=== PATIENT | male | born 1960 | race Caucasian/White ===

== ENCOUNTER 2017-06-07 19:50 | Inpatient (IN) | payer OTHER, MEDICAID ==
[~2017-06-07] VITALS: Ht 188 cm; Wt 95.3 kg
[2017-06-07] MEDS ORDERED: COLACE100 MG ORAL (19:59)
[2017-06-07] MEDS ORDERED: Haloperidol 5mg/ml Inj IM ONE (20:00)
[2017-06-07] MEDS ORDERED: DEPAKOTE ER500 MG ORAL (20:00)
[2017-06-07] MEDS ORDERED: DiphenhydrAMINE 50mg/ml Inj IM ONE (20:00)
[2017-06-07] MEDS ORDERED: FLEET ENEMA133 ML RECTAL (20:01)
[2017-06-07] MEDS ORDERED: BISACODYL5 MG ORAL (20:01)
[2017-06-07] MEDS ORDERED: HALOPERIDOL5 MG/1 ML IJ (20:02)
[2017-06-07] MEDS ORDERED: LEVOTHYROXINE150 MCG ORAL (20:02)
[2017-06-07] MEDS ORDERED: METOPROLOL TART50 M1 ORAL (20:03)
[2017-06-07] MEDS ORDERED: MILK OF MA400 MG/51 ORAL (20:03)
--- NOTE | 2017-06-07 20:03 | Emergency Room Report ---
History of Present Illness General Chief Complaint: Lower Extremity Injury Source: Patient, Medical Record, EMS Present Illness HPI The patient is sent in for altered mental status and question of lesions on his feet. He claims that he's been walking a lot. He denies suicidal or homicidal ideation. He does tend to confabulate and his history is questionable. He denies pain except in his feet. He is unsure when his last tetanus shot was. No fevers, cough, NVD, dysuria, headache. Alleges he is taking medication. There is reports of prior seizure disorder on valproic acid. No reported recent seizures. Allergies: Coded Allergies: No Known Allergies (Unverified , 06/07/17) Patient History Limited by: medical condition Past Medical History: see triage record Social History: Denies: smoking, alcohol use, drug use Social History Narrative [facility] Reviewed Nursing Documentation: PMH: Agreed, PSxH: Agreed Nursing Documentation-PM Past Medical History: No History, Except For Hx Hypertension: Yes History Of Psychiatric Problem: Yes - psychosis,schizophrenia Hx Neurological Problems: Yes - anxiety,depression,hallucinations Hx Seizures: Yes Review of Systems All Other Systems: limited Physical Exam Vital Signs Date Time Temp Pulse Resp B/P (MAP) Pulse Ox O2 Delivery O2 Flow Rate FiO2 06/07/17 19:23 98.6 78 17 118/80 97 Room Air Sp02 EP Interpretation: reviewed, normal General Appearance: well appearing, no apparent distress, alert, non-toxic Head: normocephalic, atraumatic Eyes: left eye abnormal pupil, bilateral eye normal inspection, bilateral eye PERRL, bilateral eye EOMI ENT: moist mucus membranes - no lingual macerations Neck: supple, no bony tend Respiratory: lungs clear, normal breath sounds Cardiovascular #1: regular rate, rhythm Cardiovascular #2: 2+ radial (R) Gastrointestinal: normal inspection, normal bowel sounds, non tender, no mass, non-distended Musculoskeletal: back normal, gait/station normal, normal range of motion Neurologic: alert, motor strength/tone normal, sensory intact, cerebellar normal, normal gait, oriented - X1 Psychiatric: no suicidal/homicidal ideation, other - flat affect, confabulates , perseveation Skin: warm/dry, other - blisters and ulcerations toes without erythema Medical Decision Making Diagnostic Impression: Primary Impression: Skin ulcers of both feet Additional Impressions: Psychosis Qualified Codes: F29 - Unspecified psychosis not due to a substance or known physiological condition Subtherapeutic Depakote level ER Course Patient presents with ulcers in both feet. He's been walking a lot. He's delusional at this time. Evaluation includes a foot x-rays, chest x-ray, EKG and labs. The patient be treated with IV hydration. No evidence of recent seizure activity. The patient is not responding to direction for treatment. He doesn't understand the consequences of his actions at this time. He will be sedated and non-violent restraints will be used. Patient is uncertain of tetanus status tetanus and this is given. Laboratory is unremarkable. X-rays do not show evidence of osteomyelitis or gas gangrene. Antibiotics not indicated this time aside from topical. However because the patient is psychotic the patient needs to be evaluated in the hospital. Patient admitted to medical floor with Dr. Lyons. Charles recio. PO dose ordered. Laboratory Tests Test 06/07/17 20:25 White Blood Count 9.6 K/UL (4.8-10.8) Red Blood Count 4.01 M/UL (4.70-6.10) L Hemoglobin 13.1 G/DL (14.2-18.0) L Hematocrit 41.1 % (42.0-52.0) L Mean Corpuscular Volume 103 FL (80-99) H Mean Corpuscular Hemoglobin 32.8 PG (27.0-31.0) H Mean Corpuscular Hemoglobin Concent 32.0 G/DL (32.0-36.0) Red Cell Distribution Width 10.5 % (11.6-14.8) L Platelet Count 312 K/UL (150-450) Mean Platelet Volume 5.6 FL (6.5-10.1) L Neutrophils (%) (Auto) 66.2 % (45.0-75.0) Lymphocytes (%) (Auto) 21.8 % (20.0-45.0) Monocytes (%) (Auto) 9.8 % (1.0-10.0) Eosinophils (%) (Auto) 1.5 % (0.0-3.0) Basophils (%) (Auto) 0.7 % (0.0-2.0) Erythrocyte Sedimentation Rate 16 MM/HR (0-20) Prothrombin Time 9.9 SEC (9.30-11.50) Prothrombin Time INR 0.9 (0.9-1.1) PTT 26 SEC (23-33) Sodium Level 134 MMOL/L (136-145) L Potassium Level 3.9 MMOL/L (3.5-5.1) Chloride Level 99 MMOL/L (98-107) Carbon Dioxide Level 30 MMOL/L (21-32) Anion Gap 5 mmol/L (5-15) Blood Urea Nitrogen 16 mg/dL (7-18) Creatinine 0.9 MG/DL (0.55-1.30) Estimate Glomerular Filtration Rate > 60 mL/min (>60) Glucose Level 110 MG/DL (74-106) H Lactic Acid Level 0.90 mmol/L (0.66-2.22) Calcium Level 7.5 MG/DL (8.5-10.1) L Total Bilirubin 0.3 MG/DL (0.2-1.0) Aspartate Amino Transferase (AST) 25 U/L (15-37) Alanine Aminotransferase (ALT) 21 U/L (12-78) Alkaline Phosphatase 72 U/L (46-116) Total Creatine Kinase 328 U/L (26-308) H Troponin I 0.008 ng/mL (0.000-0.056) Pro-B-Type Natriuretic Peptide 91 pg/mL (0-125) Total Protein 6.8 G/DL (6.4-8.2) Albumin 3.2 G/DL (3.4-5.0) L Globulin 3.6 g/dL Albumin/Globulin Ratio 0.9 (1.0-2.7) L Salicylates Level 3.0 ug/mL (2.8-20) Acetaminophen Level < 2 MCG/ML (10-30) L Serum Alcohol < 3 mg/dL EKG Diagnostic Results Rate: normal Rhythm: NSR ST Segments: no acute changes Rhythm Strip Diag. Results EP Interpretation: yes Rhythm: NSR, no PVC's, no ectopy Chest X-Ray Diagnostic Results Chest X-Ray Diagnostic Results : Chest X-Ray Ordered: Yes # of Views/Limited/Complete: 1 View Indication: Other EP Interpretation: Yes Interpretation: no consolidation, no effusion, no pneumothorax, no acute cardiopulmonary disease Impression: No acute disease Electronically Signed by: Gonzalez Cason MD Other X-Ray Diagnostic Results Other X-Ray Diagnostic Results #1: X-Ray ordered: R foot # of Views/Limited Vs Complete: 3 View Indication: Other EP Interpretation: Yes Interpretation: no dislocation, no soft tissue swelling, no fractures, other - djd Impression: No acute disease Electronically Signed by: Gonzalez Cason MD Other X-Ray Diagnostic Results #2: X-Ray ordered: L foot # of Views/Limited Vs Complete: 3 View Indication: Other EP Interpretation: Yes Interpretation: no dislocation, no soft tissue swelling, no fractures, other - djd Impression: No acute disease Electronically Signed by: Gonzalez Cason MD Last Vital Signs Date Time Temp Pulse Resp B/P (MAP) Pulse Ox O2 Delivery O2 Flow Rate FiO2 06/08/17 02:01 98.0 98 16 110/75 100 Room Air Status: improved Disposition: ADMITTED INPATIENT Condition: Serious Gonzalez Cason M.D. Jun 07, 2017 20:03
[2017-06-07] MEDS ORDERED: RISPERDAL1 MG PO (20:04)
[2017-06-07] MEDS ORDERED: TYLENOL325 MG ORAL (20:04)
[2017-06-07] MEDS ORDERED: Tetanus/Diptheria/Pertussis Vaccine 0.5ml Syr IM ONE (20:15)
[2017-06-07 21:07] LABS: BASOPHILS % (AUTO) 0.7 % (0.0-2.0); EOSINOPHILS % (AUTO) 1.5 % (0.0-3.0); HEMATOCRIT 41.1 % (42.0-52.0); HEMOGLOBIN 13.1 G/DL (14.2-18.0); LYMPHOCYTES % (AUTO) 21.8 % (20.0-45.0); MEAN CORPUSCULAR VOLUME 103 FL (80-99); MONOCYTES % (AUTO) 9.8 % (1.0-10.0); NEUTROPHILS % (AUTO) 66.2 % (45.0-75.0); PLATELET COUNT 312 K/UL (150-450); RED BLOOD COUNT 4.01 M/UL (4.70-6.10); RED CELL DISTRIBUTION WIDTH 10.5 % (11.6-14.8); WHITE BLOOD COUNT 9.6 K/UL (4.8-10.8)
[2017-06-07 21:19] LABS: ANION GAP 5 mmol/L (5-15); BLOOD UREA NITROGEN 16 mg/dL (7-18); CALCIUM 7.5 MG/DL (8.5-10.1); CARBON DIOXIDE 30 MMOL/L (21-32); CHLORIDE 99 MMOL/L (98-107); CREATININE 0.9 MG/DL (0.55-1.30); POTASSIUM 3.9 MMOL/L (3.5-5.1); SODIUM 134 MMOL/L (136-145)
[2017-06-07 21:21] LABS: INR 0.9 (0.9-1.1)
[2017-06-07 21:36] LABS: ALANINE AMINOTRANSFERASE 21 U/L (12-78); ALBUMIN 3.2 G/DL (3.4-5.0); ALBUMIN/GLOBULIN RATIO 0.9 (1.0-2.7); ALKALINE PHOSPHATASE 72 U/L (46-116); ASPARTATE AMINO TRANSFERASE 25 U/L (15-37); BILIRUBIN,TOTAL 0.3 MG/DL (0.2-1.0); CREATINE KINASE 328 U/L (26-308)
[2017-06-07 22:01] VITALS: BP 120/68
[2017-06-08 00:01] VITALS: BP 97/67
[2017-06-08 02:01] VITALS: BP 110/75
[2017-06-08 03:26] LABS: APPEARANCE,URINE CLEAR; BILIRUBIN, URINE NEGATIVE (NEGATIVE); COLOR,URINE PALE YELLOW; GLUCOSE, URINE (UA) NEGATIVE (NEGATIVE); KETONES,URINE 2+ (NEGATIVE); LEUKOCYTE ESTERASE ,URINE NEGATIVE (NEGATIVE); NITRITE,URINE NEGATIVE (NEGATIVE); PH,URINE 8 (4.5-8.0); PROTEIN,URINE NEGATIVE (NEGATIVE); UROBILINOGEN,URINE NORMAL MG/DL (0.0-1.0)
[2017-06-08 05:32] VITALS: BP 112/66
[2017-06-08] MEDS ORDERED: DiphenhydrAMINE 50mg/ml Inj IM ONE (06:00)
[2017-06-08] MEDS ORDERED: Haloperidol 5mg/ml Inj IM ONE (06:00)
[2017-06-08] MEDS ORDERED: LORazepam Inj 2mg/ml 1ml IM ONE (06:00)
[2017-06-08] MEDS ORDERED: Depakote 500mg tab ORAL STA (06:27)
[2017-06-08] MEDS ORDERED: Miralax 17gm pkt ORAL PRN (07:45)
[2017-06-08] MEDS ORDERED: Morphine Sulfate 2mg/ml Inj IVP PRN (07:45)
[2017-06-08] MEDS ORDERED: Albuterol/Ipratropium 3ml neb HHN PRN (07:45)
[2017-06-08] MEDS ORDERED: Nitroglycerin Subl 0.4mg tab SL PRN (08:00)
--- NOTE | 2017-06-08 08:58 | Consultation ---
History of Present Illness General Date patient seen: Jun 08, 2017 Time patient seen: 08:30 Chief Complaint: Lower Extremity Injury Referring physician: dr Lyons Reason for Consultation: inpatient management Present Illness HPI 57 y/old male with PMH of psychiatric disorder, seizure disorder, HTN, anemia, depression, hypothyroidism was sent for altered mental status and bilateral foot lesions for evaluation Patient denied suicidal or homicidal ideations. His history was questionable. He denied pain except in his feet. He was unsure when his last tetanus shot was. No fevers, chills No n/v/diarrhea, dysuria denied CP, SOB, cough, no recent seizure activity( was on Depakote ) Upon evaluation stable VSS Laboratory work was unremarkable urine tox screen negative subtherapeutic Depakote level troponin negative ECG with NSR no acute ischemic changes CXR negative X ray B foot - no evidence of osteo or gas gangrene patient was medicated for agitation/anxiety and admitted for further management Allergies: Coded Allergies: No Known Allergies (Unverified , 06/07/17) Medication History Scheduled Bisacodyl* (Dulcolax*), 10 MG ORAL ONCE, (Reported) Divalproex Sodium* (Depakote Er*), 500 MG ORAL EVERY 12 HOURS, (Reported) Docusate Sodium* (Colace*), 100 MG ORAL DAILY, (Reported) Levothyroxine Sodium* (Levothyroxine Sodium*), 150 MCG ORAL DAILY, (Reported) Magnesium Hydroxide* (Milk Of Magnesia*), 30 ML ORAL DAILY, (Reported) Metoprolol Tartrate* (Metoprolol Tartrate*), 50 MG ORAL EVERY 12 HOURS, ( Reported) Na Phos,M-B/Na Phos,Di-Ba* (Fleet Enema*), 133 ML RECTAL DAILY, (Reported) Risperidone* (Risperdal*), 1 MG PO DAILY, (Reported) Scheduled PRN Acetaminophen (Tylenol), 500 MG ORAL Q6H PRN for Prn Pain/Headache/Temp > 101, ( Reported) Miscellaneous Medications Haloperidol Lactate (Haloperidol), 1 MG IJ, (Reported) Patient History History Provided By: Medical Record Healthcare decision maker Resuscitation status Advanced Directive on File Review of Systems ROS Narrative unable to obtain due to ALOC Physical Exam General Appearance: WD/WN, no apparent distress Lines, tubes and drains: peripheral HEENT: normocephalic, atraumatic, anicteric, mucous membranes moist Neck: non-tender, supple Respiratory/Chest: lungs clear, no respiratory distress Cardiovascular/Chest: normal rate, no JVD Abdomen: normal bowel sounds, soft Extremities: normal range of motion, non-tender Skin Exam: other - blisters and ulcerations bilateral great toes without erythema Neurologic: alert, responsive, depressed affect Last 24 Hour Vital Signs Date Time Temp Pulse Resp B/P (MAP) Pulse Ox O2 Delivery O2 Flow Rate FiO2 06/08/17 05:32 98.2 82 18 112/66 99 Room Air 06/08/17 02:01 98.0 98 16 110/75 100 Room Air 06/08/17 00:01 98.6 62 20 97/67 100 Room Air 06/07/17 22:01 98.6 79 18 120/68 100 Room Air 06/07/17 19:23 98.6 78 17 118/80 97 Room Air Intake and Output 06/07/17 06/08/17 19:00 07:00 Intake Total 0 ml Output Total 2450 ml Balance -2450 ml Intake Oral 0 ml Output Urine Total 2450 ml Laboratory Tests Test 06/07/17 20:25 06/08/17 00:00 06/08/17 03:12 White Blood Count 9.6 K/UL (4.8-10.8) Red Blood Count 4.01 M/UL (4.70-6.10) L Hemoglobin 13.1 G/DL (14.2-18.0) L Hematocrit 41.1 % (42.0-52.0) L Mean Corpuscular Volume 103 FL (80-99) H Mean Corpuscular Hemoglobin 32.8 PG (27.0-31.0) H Mean Corpuscular Hemoglobin Concent 32.0 G/DL (32.0-36.0) Red Cell Distribution Width 10.5 % (11.6-14.8) L Platelet Count 312 K/UL (150-450) Mean Platelet Volume 5.6 FL (6.5-10.1) L Neutrophils (%) (Auto) 66.2 % (45.0-75.0) Lymphocytes (%) (Auto) 21.8 % (20.0-45.0) Monocytes (%) (Auto) 9.8 % (1.0-10.0) Eosinophils (%) (Auto) 1.5 % (0.0-3.0) Basophils (%) (Auto) 0.7 % (0.0-2.0) Erythrocyte Sedimentation Rate 16 MM/HR (0-20) Prothrombin Time 9.9 SEC (9.30-11.50) Prothromb Time International Ratio 0.9 (0.9-1.1) Activated Partial Thromboplast Time 26 SEC (23-33) Sodium Level 134 MMOL/L (136-145) L Potassium Level 3.9 MMOL/L (3.5-5.1) Chloride Level 99 MMOL/L (98-107) Carbon Dioxide Level 30 MMOL/L (21-32) Anion Gap 5 mmol/L (5-15) Blood Urea Nitrogen 16 mg/dL (7-18) Creatinine 0.9 MG/DL (0.55-1.30) Estimat Glomerular Filtration Rate > 60 mL/min (>60) Glucose Level 110 MG/DL (74-106) H Lactic Acid Level 0.90 mmol/L (0.66-2.22) Calcium Level 7.5 MG/DL (8.5-10.1) L Total Bilirubin 0.3 MG/DL (0.2-1.0) Aspartate Amino Transf (AST/SGOT) 25 U/L (15-37) Alanine Aminotransferase (ALT/SGPT) 21 U/L (12-78) Alkaline Phosphatase 72 U/L (46-116) Total Creatine Kinase 328 U/L (26-308) H Troponin I 0.008 ng/mL (0.000-0.056) Pro-B-Type Natriuretic Peptide 91 pg/mL (0-125) Total Protein 6.8 G/DL (6.4-8.2) Albumin 3.2 G/DL (3.4-5.0) L Globulin 3.6 g/dL Albumin/Globulin Ratio 0.9 (1.0-2.7) L Salicylates Level 3.0 ug/mL (2.8-20) Acetaminophen Level < 2 MCG/ML (10-30) L Serum Alcohol < 3 mg/dL Valproic Acid (Depakene) Level 36 MCG/ML (50-100) L Urine Color Pale yellow Urine Appearance Clear Urine pH 8 (4.5-8.0) Urine Specific [place] 1.015 (1.005-1.035) Urine Protein Negative (NEGATIVE) Urine Glucose (UA) Negative (NEGATIVE) Urine Ketones 2+ (NEGATIVE) H Urine Occult Blood 4+ (NEGATIVE) H Urine Nitrite Negative (NEGATIVE) Urine Bilirubin Negative (NEGATIVE) Urine Urobilinogen Normal MG/DL (0.0-1.0) Urine Leukocyte Esterase Negative (NEGATIVE) Urine RBC 15-20 /HPF (0 - 0) H Urine WBC 0 /HPF (0 - 0) Urine Squamous Epithelial Cells Occasional /LPF Urine Bacteria None /HPF (NONE) Urine Opiates Screen Negative (NEGATIVE) Urine Barbiturates Screen Negative (NEGATIVE) Phencyclidine (PCP) Screen Negative (NEGATIVE) Urine Amphetamines Screen Negative (NEGATIVE) Urine Benzodiazepines Screen Negative (NEGATIVE) Urine Cocaine Screen Negative (NEGATIVE) Urine Marijuana (THC) Screen Negative (NEGATIVE) Height (Feet): 6 Height (Inches): 1.00 Weight (Pounds): 210 Medications Current Medications Medications (Trade) Dose Ordered Sig/Bert Route PRN Reason Start Time Stop Time Status Last Admin Dose Admin Acetaminophen (Tylenol) 650 mg Q4H PRN ORAL T>100.5 F 06/08/17 08:00 07/08/17 07:44 Albuterol/ Ipratropium (Albuterol/ Ipratropium) 3 ml Q4H PRN HHN Shortness of Breath 06/08/17 07:45 06/13/17 07:44 Cefepime HCl 2 gm/ Dextrose 110 ml @ 220 mls/hr EVERY 12 HOURS IV 06/08/17 09:00 06/15/17 08:59 Dextrose (Dextrose 50%) STAT PRN IV Hypoglycemia 06/08/17 07:45 07/08/17 07:44 Divalproex Sodium (Depakote ER) 500 mg EVERY 12 HOURS ORAL 06/08/17 09:00 07/08/17 08:59 Heparin Sodium (Porcine) (Heparin 5000 units/ml) 5,000 units EVERY 12 HOURS SUBQ 06/08/17 09:00 07/08/17 08:59 Levothyroxine Sodium (Synthroid) 150 mcg ACBREAKFAST ORAL 06/08/17 09:00 07/08/17 08:59 Morphine Sulfate (Morphine Sulfate) 2 mg Q4H PRN IVP PAIN 4-10 06/08/17 07:45 06/15/17 07:44 Nitroglycerin (Ntg) 0.4 mg Q5MIN X 3 DOSES PRN SL Prn Chest Pain 06/08/17 08:00 07/08/17 07:59 Ondansetron HCl (Zofran) 4 mg Q6H PRN IVP Nausea & Vomiting 06/08/17 07:45 07/08/17 07:44 Polyethylene Glycol (Miralax) 17 gm DAILYPRN PRN ORAL Constipation 06/08/17 07:45 07/08/17 07:44 Risperidone (RisperDAL) 1 mg QHS ORAL 06/08/17 21:00 07/08/17 20:59 Temazepam (Restoril) 15 mg HSPRN PRN ORAL Insomnia 06/08/17 21:00 06/15/17 20:59 Vancomycin HCl (Vanco rx to dose) 1 ea DAILY PRN MISC . 06/08/17 08:00 07/08/17 07:59 Vancomycin HCl 1 gm/Dextrose 275 ml @ 183.3 mls/ hr Q8HR@0130,0930,1730 IVPB 06/08/17 17:30 06/13/17 17:29 Vancomycin HCl 2 gm/Dextrose 550 ml @ 275 mls/hr ONCE ONCE IVPB 06/08/17 09:30 06/08/17 11:29 Assessment/Plan Assessment/Plan ASSESSMENT acute toxic metabolic encephalopathy bilateral foot lesions, r/o infection seizure disorder psychosis depression with anxiety hypothyroidism PLAN OF CARE MS floor seizure precautions resume Depakote neuro eval dose per neuro recommendations psych eval ( dr Palacios called as per PMD) -further management of psych issues as per psychiatrist for now continue current psych regimen X ray bilat foot no osteo, no gas gangrene started on empiric abx until evaluated by ID tetanus shot given in ED air grinder eval wound care eval re wound care and f/up with recommendations PT/OT O2 HHH prn DVT prophayxlis Venous Duplex BLE case discussed and evaluated by supervising physician Zack ([facility])Snehal NP Jun 08, 2017 08:58
[2017-06-08] MEDS ORDERED: Cefepime HCl 2 GM in D5W 110 ML IV SCH (09:00)
[2017-06-08 09:13] VITALS: BP 100/71
[2017-06-08] MEDS ORDERED: Vancomycin 2gm/D5W 550ml IVPB ONE ×4 (09:30→12:00)
[2017-06-08] MEDS: Depakote ER 500mg tab ORAL SCH ×2 (11:21→21:11)
[2017-06-08] MEDS: Heparin 5000 units/ml inj SUBQ SCH ×2 (11:23→21:12)
--- NOTE | 2017-06-08 11:45 | Neurology Progress Note ---
Objective Physical Exam Last Vital Signs Date Time Temp Pulse Resp B/P (MAP) Pulse Ox O2 Delivery O2 Flow Rate FiO2 06/08/17 09:13 97.0 64 20 100/71 95 Room Air Laboratory Tests Test 06/07/17 20:25 06/08/17 00:00 06/08/17 03:12 White Blood Count 9.6 K/UL (4.8-10.8) Red Blood Count 4.01 M/UL (4.70-6.10) L Hemoglobin 13.1 G/DL (14.2-18.0) L Hematocrit 41.1 % (42.0-52.0) L Mean Corpuscular Volume 103 FL (80-99) H Mean Corpuscular Hemoglobin 32.8 PG (27.0-31.0) H Mean Corpuscular Hemoglobin Concent 32.0 G/DL (32.0-36.0) Red Cell Distribution Width 10.5 % (11.6-14.8) L Platelet Count 312 K/UL (150-450) Mean Platelet Volume 5.6 FL (6.5-10.1) L Neutrophils (%) (Auto) 66.2 % (45.0-75.0) Lymphocytes (%) (Auto) 21.8 % (20.0-45.0) Monocytes (%) (Auto) 9.8 % (1.0-10.0) Eosinophils (%) (Auto) 1.5 % (0.0-3.0) Basophils (%) (Auto) 0.7 % (0.0-2.0) Erythrocyte Sedimentation Rate 16 MM/HR (0-20) Prothrombin Time 9.9 SEC (9.30-11.50) Prothromb Time International Ratio 0.9 (0.9-1.1) Activated Partial Thromboplast Time 26 SEC (23-33) Sodium Level 134 MMOL/L (136-145) L Potassium Level 3.9 MMOL/L (3.5-5.1) Chloride Level 99 MMOL/L (98-107) Carbon Dioxide Level 30 MMOL/L (21-32) Anion Gap 5 mmol/L (5-15) Blood Urea Nitrogen 16 mg/dL (7-18) Creatinine 0.9 MG/DL (0.55-1.30) Estimat Glomerular Filtration Rate > 60 mL/min (>60) Glucose Level 110 MG/DL (74-106) H Lactic Acid Level 0.90 mmol/L (0.66-2.22) Calcium Level 7.5 MG/DL (8.5-10.1) L Total Bilirubin 0.3 MG/DL (0.2-1.0) Aspartate Amino Transf (AST/SGOT) 25 U/L (15-37) Alanine Aminotransferase (ALT/SGPT) 21 U/L (12-78) Alkaline Phosphatase 72 U/L (46-116) Total Creatine Kinase 328 U/L (26-308) H Troponin I 0.008 ng/mL (0.000-0.056) Pro-B-Type Natriuretic Peptide 91 pg/mL (0-125) Total Protein 6.8 G/DL (6.4-8.2) Albumin 3.2 G/DL (3.4-5.0) L Globulin 3.6 g/dL Albumin/Globulin Ratio 0.9 (1.0-2.7) L Salicylates Level 3.0 ug/mL (2.8-20) Acetaminophen Level < 2 MCG/ML (10-30) L Serum Alcohol < 3 mg/dL Valproic Acid (Depakene) Level 36 MCG/ML (50-100) L Urine Color Pale yellow Urine Appearance Clear Urine pH 8 (4.5-8.0) Urine Specific [place] 1.015 (1.005-1.035) Urine Protein Negative (NEGATIVE) Urine Glucose (UA) Negative (NEGATIVE) Urine Ketones 2+ (NEGATIVE) H Urine Occult Blood 4+ (NEGATIVE) H Urine Nitrite Negative (NEGATIVE) Urine Bilirubin Negative (NEGATIVE) Urine Urobilinogen Normal MG/DL (0.0-1.0) Urine Leukocyte Esterase Negative (NEGATIVE) Urine RBC 15-20 /HPF (0 - 0) H Urine WBC 0 /HPF (0 - 0) Urine Squamous Epithelial Cells Occasional /LPF Urine Bacteria None /HPF (NONE) Urine Opiates Screen Negative (NEGATIVE) Urine Barbiturates Screen Negative (NEGATIVE) Phencyclidine (PCP) Screen Negative (NEGATIVE) Urine Amphetamines Screen Negative (NEGATIVE) Urine Benzodiazepines Screen Negative (NEGATIVE) Urine Cocaine Screen Negative (NEGATIVE) Urine Marijuana (THC) Screen Negative (NEGATIVE) Impression/Recommendations Recommendations # [id number] NADYA CAMPBELL Jun 08, 2017 11:45
[2017-06-08 11:51] VITALS: BP 102/66
--- NOTE | 2017-06-08 15:15 | History and Physical Report ---
DATE OF ADMISSION: 06/07/2017 TIME SEEN: 8 a.m. CONSULTANTS: 1. Shital Plummer M.D. 2. Dr. Saldana. 3. Melecio Palacios M.D. 4. Tee Banuelos D.P.M. CHIEF COMPLAINT: Foot ulcer and psychosis. BRIEF HISTORY: The patient is a 57-year-old male from [facility], presented with the above-mentioned diagnosis seen in the ER, still in the ER currently awaiting admission. Currently calm, sleeping in bed, refusing to answer questions. PAST MEDICAL HISTORY: Includes psych history, hypertension, hypothyroid, and foot wound. PAST SURGICAL HISTORY: Unknown. MEDICATIONS: Include Risperdal, Restoril, vancomycin, Depakote, Synthroid, heparin, cefepime, and Zofran. ALLERGIES: Denies. SOCIAL HISTORY: Unable to obtain. REVIEW OF SYSTEMS: Unavailable. PHYSICAL EXAMINATION: GENERAL: Lethargic in bed, refusing to answer questions. VITAL SIGNS: Show temperature is 98, pulse 82, respirations 18, and blood pressure 112/66. CARDIOVASCULAR: No murmurs. LUNGS: Distant and clear. ABDOMEN: Bowel sounds positive. Nontender. Nondistended. EXTREMITIES: No cyanosis or edema. Foot dressing clean and dry. NEURO: The patient moves all extremities. Does not want to follow directions. LABORATORY DATA: Labs at this time show hemoglobin 13.1, otherwise CBC is normal. BMP shows sodium 134, glucose 110, CK 328, albumin 3.2, otherwise normal. INR 0.9. PTT 26. Urine tox is negative. Urinalysis, 2+ ketones, 4+ occult blood, otherwise normal. ASSESSMENT: 1. Foot ulcer. 2. Psych history. 3. Hypertension. 4. Hypothyroid. 5. Anemia. PLAN: 1. Continue premeds. 2. Wound care. 3. Antibiotics per Infectious Disease. 4. Blood pressure control. 5. OT, PT, and dietary evaluation. 6. CBC and BMP in the morning. 7. We will continue to follow this patient medically. Osmin Lyons D.O. DR: VALENTINA JOB#: [id number] CC:
--- NOTE | 2017-06-08 16:15 | Consultation ---
DATE OF CONSULTATION: 06/08/2017 NEUROLOGICAL CONSULTATION CONSULTING PHYSICIAN: Ren Cortez M.D. REQUESTING PHYSICIAN: Osmin Lyons D.O. HISTORY OF PRESENT ILLNESS: The patient is a 57-year-old male, resident of a nursing facility, was brought to this hospital for significant changes in his mental status as well as to evaluate possible multiple lesions on his feet. On arrival to the emergency room, he was confabulating. History was not reliable. There was no fever and no cough. Denied headache. The patient reportedly had "prior seizure disorder on valproic acid," now reported recent seizures. His blood pressure 118/80 and he is afebrile. There were some skin ulcers on his both feet. His Depakote level was subtherapeutic. X-ray of the feet, there is no evidence of osteomyelitis or gangrene. Extra p.o. dose of Depakote was ordered. His EKG, normal sinus rhythm. No premature ventricular contractions and no ectopies noted. CBC study with elevated MCV and MCH. Coagulation panel was normal. His chemistry panel is unremarkable except CPK of 328, albumin 3.2, and sodium 134. Valproic acid level 46. PAST MEDICAL HISTORY: The patient has a history of chronic psychiatric disorder, hypertension, and hypothyroidism. The patient denies having seizures. MEDICATIONS: He is maintained on Depakote 500 mg b.i.d., levothyroxine, magnesium supplements, metoprolol, Risperdal 1 mg daily, and Haldol 1 mg. ALLERGIES: None reported. SOCIAL HISTORY: Resident of nursing facility. FAMILY HISTORY: Unavailable. REVIEW OF SYMPTOMS: The patient gives unreliable information indicating that he has no seizures and he is feeling well. According to nursing staff, upon arrival to the hospital, the patient had a persistent sleep, but the last few hours he woke up. PHYSICAL EXAMINATION: GENERAL: A well-developed, well-nourished man, not in acute distress, lying in bed comfortably. There is a sitter in the room and nursing staff. VITAL SIGNS: His blood pressure 118/80 and respirations 14. HEENT: Head, normocephalic. There are multiple recent and old scratches on his scalp and his both arms. There is some excoriation on both feet. MUSCULOSKELETAL EXAMINATION: Peripheral pulses 1+ and symmetric. MENTAL STATUS: The patient is alert and oriented to his name and age. He gives a very contradictory history. He is acutely psychotic, disorganized, and inappropriate affect. CRANIAL NERVE II: Pupils both responding to light and accommodation. Extraocular movement intact. No nystagmus. CRANIAL NERVE V: Normal corneal responses. CRANIAL NERVE VII: No facial asymmetry. CRANIAL NERVE VIII: Normal hearing. CRANIAL NERVES IX THROUGH XII: Within normal limits. MOTOR EXAMINATION: Normal muscle tone. Strength 5/5 in all extremities. No involuntary movement. Deep tendon reflexes 1+ and symmetric with downgoing toes on both sides. SENSORY EXAMINATION: Normal to pinprick and light touch. GAIT: Not tested. The patient was reluctant to sit or stand. IMPRESSION: 1. Acute psychosis. 2. Chronic psychiatric disorder. 3. Treatment with Depakote presumably for seizure disorder. 4. Incomplete data. RECOMMENDATIONS: Recheck Depakote level, liver function, and ammonia level. Adjust Depakote to keep in midtherapeutic range. Observe for any paroxysmal events while hospitalized. Recheck orthostatic blood pressure. Thank you for allowing me to see this interesting patient in neurological consultation. Ren Cortez M.D. DR: FIDEL JOB#: [id number] CC:
[2017-06-08] MEDS ORDERED: Tubing IV Secondary IV ONE (16:59)
[2017-06-08] MEDS ORDERED: NS 500ML ONE (16:59)
[2017-06-08] MEDS ORDERED: LORazepam Inj 2mg/ml 1ml IV ONE (17:00)
[2017-06-08] MEDS ORDERED: Vancomycin 1 GM in D5W 275 ML IVPB SCH ×4 (17:30)
--- NOTE | 2017-06-08 20:30 | Consultation ---
DATE OF CONSULTATION: 06/08/2017 INFECTIOUS DISEASES CONSULTATION PRIMARY ATTENDING PHYSICIAN: Osmin Lyons D.O. REASON FOR CONSULTATION: Cellulitis, left foot pain. HISTORY OF PRESENT ILLNESS: The patient is a 57-year-old white male admitted yesterday from halfway facility with skin ulcers both feet. The patient is a poor historian. PAST MEDICAL HISTORY: Significant for schizophrenia, hypothyroidism, history of seizure disorder, violent behavior, and hypertension. ALLERGIES: No known drug allergies. MEDICATIONS: Risperdal, temazepam, vancomycin, Depakote, levothyroxine, cefepime, heparin, Tylenol, Zofran, , and morphine. SOCIAL HISTORY: halfway resident, single. REVIEW OF SYSTEMS: Limited. The patient has no pain. No fever. No chills. No coughing. PHYSICAL EXAMINATION: GENERAL APPEARANCE: No acute distress, well developed. VITAL SIGNS: Temperature 97.3 degrees, pulse 75, and blood pressure 102/66. HEENT: [place] conjunctivae. HEART: S1 and S2 regular. LUNGS: Clear. ABDOMEN: Soft and nontender. EXTREMITIES: No edema. He has superficial skin lesion on his both feet. There is an area of skin swelling likely an drained skin abscess in the left big toe. The patient has no edema. Good peripheral pulses. LABORATORY AND DIAGNOSTIC DATA: WBC 9.6, hemoglobin 13.1, hematocrit 41.1, and platelets 312. Sodium 134, potassium 3.9, chloride 99, bicarbonate 30, BUN 16, creatinine 0.9, and glucose 110. Chest x-ray was negative. Foot x-ray was no bony deformity. IMPRESSION: 1. Cellulitis of left lower extremity, left big toe, likely purulent. 2. The patient has schizophrenia. 3. Hypertension. 4. Seizure disorder. 5. Hypothyroidism. RECOMMENDATION: 1. Continue with vancomycin. 2. We will obtain wound culture. At the end of my exam, I thank Dr. Osmin Lyons, for involving me in the care of this patient. Gasper Oh M.D. DR: LEDA JOB#: [id number] CC: CHARLES
[2017-06-08 21:00] VITALS: BP 112/57
[2017-06-08] MEDS: Vancomycin 1 GM in D5W 275 ML IVPB SCH (21:11)
[2017-06-09] VITALS: BP 117/61
[2017-06-09 04:00] VITALS: BP 127/65
[2017-06-09] MEDS: Vancomycin 1 GM in D5W 275 ML IVPB SCH ×2 (04:03→12:14)
[2017-06-09 07:51] VITALS: BP 117/69
[2017-06-09 07:56] LABS: BASOPHILS % (AUTO) 0.6 % (0.0-2.0); EOSINOPHILS % (AUTO) 1.3 % (0.0-3.0); HEMATOCRIT 40.8 % (42.0-52.0); LYMPHOCYTES % (AUTO) 21.1 % (20.0-45.0); MEAN CORPUSCULAR VOLUME 103 FL (80-99); MONOCYTES % (AUTO) 7.6 % (1.0-10.0); NEUTROPHILS % (AUTO) 69.4 % (45.0-75.0); PLATELET COUNT 276 K/UL (150-450); RED BLOOD COUNT 3.95 M/UL (4.70-6.10); RED CELL DISTRIBUTION WIDTH 10.8 % (11.6-14.8); WHITE BLOOD COUNT 7.2 K/UL (4.8-10.8)
[2017-06-09 08:12] LABS: ALANINE AMINOTRANSFERASE 25 U/L (12-78); ALBUMIN 3.1 G/DL (3.4-5.0); ALBUMIN/GLOBULIN RATIO 0.8 (1.0-2.7); ALKALINE PHOSPHATASE 58 U/L (46-116); ANION GAP 5 mmol/L (5-15); ASPARTATE AMINO TRANSFERASE 27 U/L (15-37); BILIRUBIN,TOTAL 0.3 MG/DL (0.2-1.0); BLOOD UREA NITROGEN 10 mg/dL (7-18); CALCIUM 7.5 MG/DL (8.5-10.1); CARBON DIOXIDE 30 MMOL/L (21-32); CHLORIDE 99 MMOL/L (98-107); CREATININE 0.8 MG/DL (0.55-1.30); POTASSIUM 3.5 MMOL/L (3.5-5.1); SODIUM 134 MMOL/L (136-145)
[2017-06-09] MEDS: Depakote ER 500mg tab ORAL SCH ×3 (08:55→22:16)
[2017-06-09] MEDS: Heparin 5000 units/ml inj SUBQ SCH ×2 (08:57→22:17)
--- NOTE | 2017-06-09 09:18 | Podiatric Progress Note ---
Assessment/Plan Patient Edy Ambrocio is a 57 year old male who was admitted on Jun 07, 2017 at 21:02 with Problems: Assessment/Plan A/ Skin tears noted on bilateral great toes and 2nd toes without signs of acute infection P/ [place] all sites with betadine and leave open to air. No surgical intervention is indicated. Will sign off. Thank you Dr Lyons Subjective Allergies: Coded Allergies: No Known Allergies (Unverified , 06/07/17) Subjective Patient resting comfortably Objective Exam Last 24 Hour Vital Signs Date Time Temp Pulse Resp B/P (MAP) Pulse Ox O2 Delivery O2 Flow Rate FiO2 06/09/17 07:51 98.2 93 20 117/69 97 06/09/17 04:00 98.2 79 21 127/65 95 06/09/17 00:00 97.9 84 21 117/61 97 06/08/17 21:00 98.2 96 21 112/57 97 06/08/17 17:32 97.3 06/08/17 12:00 99 Room Air 06/08/17 11:51 97.3 75 22 102/66 99 Room Air 75 Laboratory Tests Test 06/09/17 05:45 White Blood Count 7.2 K/UL (4.8-10.8) Red Blood Count 3.95 M/UL (4.70-6.10) L Hemoglobin 14.0 G/DL (14.2-18.0) L Hematocrit 40.8 % (42.0-52.0) L Mean Corpuscular Volume 103 FL (80-99) H Mean Corpuscular Hemoglobin 35.4 PG (27.0-31.0) H Mean Corpuscular Hemoglobin Concent 34.4 G/DL (32.0-36.0) Red Cell Distribution Width 10.8 % (11.6-14.8) L Platelet Count 276 K/UL (150-450) Mean Platelet Volume 6.1 FL (6.5-10.1) L Neutrophils (%) (Auto) 69.4 % (45.0-75.0) Lymphocytes (%) (Auto) 21.1 % (20.0-45.0) Monocytes (%) (Auto) 7.6 % (1.0-10.0) Eosinophils (%) (Auto) 1.3 % (0.0-3.0) Basophils (%) (Auto) 0.6 % (0.0-2.0) Sodium Level 134 MMOL/L (136-145) L Potassium Level 3.5 MMOL/L (3.5-5.1) Chloride Level 99 MMOL/L (98-107) Carbon Dioxide Level 30 MMOL/L (21-32) Anion Gap 5 mmol/L (5-15) Blood Urea Nitrogen 10 mg/dL (7-18) Creatinine 0.8 MG/DL (0.55-1.30) Estimat Glomerular Filtration Rate > 60 mL/min (>60) Glucose Level 94 MG/DL (74-106) Calcium Level 7.5 MG/DL (8.5-10.1) L Total Bilirubin 0.3 MG/DL (0.2-1.0) Aspartate Amino Transf (AST/SGOT) 27 U/L (15-37) Alanine Aminotransferase (ALT/SGPT) 25 U/L (12-78) Alkaline Phosphatase 58 U/L (46-116) Total Protein 6.9 G/DL (6.4-8.2) Albumin 3.1 G/DL (3.4-5.0) L Globulin 3.8 g/dL Albumin/Globulin Ratio 0.8 (1.0-2.7) L Thyroid Stimulating Hormone (TSH) 2.774 uiU/mL (0.358-3.740) Microbiology Date/Time Source Procedure Growth Status 06/07/17 20:30 Blood Blood Culture - Preliminary NO GROWTH AFTER 24 HOURS Resulted General Appearance: WD/WN Vascular Pulses: 2 dorsalis pedis (R), 2 dorsalis pedis (L), 2 posterior tibial (R), 2 posterior tibial (L) Edema: no edema noted foot (L), no edema noted foot (R), no edema noted ankle ( L), no edema noted ankle (R), no edema noted leg (L), no edema noted leg (R) Pedal hair present: Yes Temperature: within normal limits Neurological Light touch: sensate bilateral Dermatological Dermatological: wound - Superficial wounds noted on the dorsum of bilateral great toes and 2nd toes. No signs of acute infection Tee Banuelos DPWilmer Jun 09, 2017 09:18
[2017-06-09 11:32] VITALS: BP 121/86
--- NOTE | 2017-06-09 13:18 | Wound Care Consultation ---
Wound Assessment Wound Assessment : Wound Number: 1 Wound Present on Admission: Yes New Wound: No Status Change of Wound: No Wound Location Body Site Modif: left, right Wound Location Body Site: toe - 1st and 2nd toe Wound Type: scab Meenakshi Test: Does not Meenakshi Wound Thickness: Full Thickness Percent of Wound [place]/Red: 100 - dry Wound Drainage Amount: None Wound Drainage Odor: None/Absent Tissue Surrounding Wound: Intact Wound General Appearance: Asymptomatic Wound Comment #1 Dry scabs on left and right 1st and 2nd anterior toe Recommendation -Keep clean and dry -Optimize nutrition -Assess and f/u accordingly for any changes MARYJANE WARREN RN Jun 09, 2017 13:18
--- NOTE | 2017-06-09 14:09 | General Progress Note ---
Assessment/Plan Problem List: (1) Psychosis ICD Codes: F29 - Unspecified psychosis not due to a substance or known physiological condition SNOMED: 95939313, 24640594 Qualifiers: Qualified Codes: F29 - Unspecified psychosis not due to a substance or known physiological condition (2) Skin ulcers of both feet ICD Codes: L97.519 - Non-pressure chronic ulcer of other part of right foot with unspecified severity; L97.529 - Non-pressure chronic ulcer of other part of left foot with unspecified severity SNOMED: 53040323, 69637868 (3) HTN (hypertension) ICD Codes: I10 - Essential (primary) hypertension SNOMED: 33774712 (4) Seizure ICD Codes: R56.9 - Unspecified convulsions SNOMED: 05153426 (5) Anemia ICD Codes: D64.9 - Anemia, unspecified SNOMED: 718303736 (6) Hypothyroid ICD Codes: E03.9 - Hypothyroidism, unspecified SNOMED: 76938987 Status: stable, progressing, tolerating diet Assessment/Plan ot pt diet abx wound care cbc bmp am psyc transfer Subjective Constitutional: Reports: weakness Allergies: Coded Allergies: No Known Allergies (Unverified , 06/07/17) All Systems: reviewed and negative except above Subjective confused in bed Objective Last 24 Hour Vital Signs Date Time Temp Pulse Resp B/P (MAP) Pulse Ox O2 Delivery O2 Flow Rate FiO2 06/09/17 11:32 97.6 85 19 121/86 99 Room Air 06/09/17 07:51 98.2 93 20 117/69 97 06/09/17 04:00 98.2 79 21 127/65 95 06/09/17 00:00 97.9 84 21 117/61 97 06/08/17 21:00 98.2 96 21 112/57 97 06/08/17 17:32 97.3 Intake and Output 06/08/17 06/09/17 19:00 07:00 Intake Total 1080 ml 549.9 ml Balance 1080 ml 549.9 ml Intake Oral 1080 ml IV Total 549.9 ml # Voids 1 3 Laboratory Tests 06/09/17 05:45: White Blood Count 7.2, Red Blood Count 3.95L, Hemoglobin 14.0L, Hematocrit 40.8L , Mean Corpuscular Volume 103H, Mean Corpuscular Hemoglobin 35.4H, Mean Corpuscular Hemoglobin Concent 34.4, Red Cell Distribution Width 10.8L, Platelet Count 276, Mean Platelet Volume 6.1L, Neutrophils (%) (Auto) 69.4, Lymphocytes (%) (Auto) 21.1, Monocytes (%) (Auto) 7.6, Eosinophils (%) (Auto) 1.3, Basophils (%) (Auto) 0.6, Sodium Level 134L, Potassium Level 3.5, Chloride Level 99, Carbon Dioxide Level 30, Anion Gap 5, Blood Urea Nitrogen 10, Creatinine 0.8, Estimat Glomerular Filtration Rate > 60, Glucose Level 94, Calcium Level 7.5L, Total Bilirubin 0.3, Aspartate Amino Transf (AST/SGOT) 27, Alanine Aminotransferase (ALT/SGPT) 25, Alkaline Phosphatase 58, Total Protein 6.9, Albumin 3.1L, Globulin 3.8, Albumin/Globulin Ratio 0.8L, Thyroid Stimulating Hormone (TSH) 2.774 06/09/17 09:00: Vancomycin Level Trough 14.0H Height (Feet): 6 Height (Inches): 2.00 Weight (Pounds): 210 General Appearance: confused EENT: normal ENT inspection Neck: normal alignment Cardiovascular: normal peripheral pulses, normal rate, regular rhythm Respiratory/Chest: chest wall non-tender, lungs clear, normal breath sounds Abdomen: normal bowel sounds, non tender, soft Extremities: normal inspection Edema: no edema noted Arm (L), no edema noted Arm (R), no edema noted Leg (L), no edema noted Leg (R), no edema noted Pedal (L), no edema noted Pedal (R), no edema noted Generalized Neurologic: motor weakness Skin: normal pigmentation, warm/dry MILAD MARCUS Jun 09, 2017 14:09
[2017-06-09 16:00] VITALS: BP 127/100
--- NOTE | 2017-06-09 16:30 | GI Initial Consult Note ---
History of Present Illness General Date patient seen: Jun 09, 2017 Time patient seen: 16:26 Reason for Hospitalization: Lower Extremity Injury Referring physician: dr Lyons Reason for Consultation: ABDOMINAL PAIN Present Illness HPI The patient is sent in for altered mental status and question of lesions on his feet. He claims that he's been walking a lot. He denies suicidal or homicidal ideation. He does tend to confabulate and his history is questionable. He denies pain except in his feet. He is unsure when his last tetanus shot was. No fevers, cough, NVD, dysuria, headache. Alleges he is taking medication. There is reports of prior seizure disorder on valproic acid. No reported recent seizures. GI consulted for abdominal pain. HPI noted above. Pt seen on floor, awake A& Ox4 NAD with no active s/sx of N/V/D. States he doesn't have any abdominal pain at this time. No other general GI complaints noted. Sitter for safety. No leukocytosis. Utox negative. No history of endoscopies / colonoscopies, refuses to have any done. Home Meds Reported Medications Acetaminophen (Tylenol) 325 Mg Tablet, 500 MG ORAL Q6H Y for Prn Pain/Headache/ Temp > 101, #30 TAB 0 Refills 06/07/17 Risperidone* (RISPERDAL*) 1 Mg Tablet, 1 MG PO DAILY, TAB 06/07/17 Magnesium Hydroxide* (MILK OF MAGNESIA*) 400 Mg/5 Ml Oral.susp, 30 ML ORAL DAILY , ML 06/07/17 Metoprolol Tartrate* (METOPROLOL TARTRATE*) 50 Mg Tablet, 50 MG ORAL EVERY 12 HOURS, TAB 06/07/17 Levothyroxine Sodium* (LEVOTHYROXINE SODIUM*) 150 Mcg Tablet, 150 MCG ORAL DAILY , TAB Take in the morning on an empty stomach, at least 30 minutes before food. 06/07/17 Haloperidol Lactate (HALOPERIDOL) 5 Mg/1 Ml Ampul, 1 MG IJ, AMP 06/07/17 Na Phos,M-B/Na Phos,Di-Ba* (FLEET ENEMA*) 133 Ml Enema, 133 ML RECTAL DAILY, ML 0 Refills 06/07/17 Bisacodyl* (DULCOLAX*) 5 Mg Tablet.dr, 10 MG ORAL ONCE, #4 TAB 0 Refills 06/07/17 Divalproex Sodium* (DEPAKOTE ER*) 500 Mg Tab.er.24h, 500 MG ORAL EVERY 12 HOURS , TAB 06/07/17 Docusate Sodium* (COLACE*) 100 Mg Capsule, 100 MG ORAL DAILY, CAP 06/07/17 Med list reviewed/reconciled: Yes Allergies: Coded Allergies: No Known Allergies (Unverified , 06/07/17) Patient History History Provided By: Patient, Medical Record PMH Narrative Limited by: medical condition Past Medical History: see triage record Social History: Denies: smoking, alcohol use, drug use Social History Narrative [place] Reviewed Nursing Documentation: PMH: Agreed, PSxH: Agreed Nursing Documentation-PMH Past Medical History: No History, Except For Hx Hypertension: Yes History Of Psychiatric Problem: Yes - psychosis,schizophrenia Hx Neurological Problems: Yes - anxiety,depression,hallucinations Hx Seizures: Yes Social History: Denies: smoking, alcohol use, drug use, other Review of Systems All Other Systems: negative except mentioned in HPI Physical Exam Vital Signs Date Time Temp Pulse Resp B/P (MAP) Pulse Ox O2 Delivery O2 Flow Rate FiO2 06/07/17 19:23 98.6 78 17 118/80 97 Room Air Labs Laboratory Tests Test 06/09/17 05:45 06/09/17 09:00 White Blood Count 7.2 K/UL (4.8-10.8) Red Blood Count 3.95 M/UL (4.70-6.10) L Hemoglobin 14.0 G/DL (14.2-18.0) L Hematocrit 40.8 % (42.0-52.0) L Mean Corpuscular Volume 103 FL (80-99) H Mean Corpuscular Hemoglobin 35.4 PG (27.0-31.0) H Mean Corpuscular Hemoglobin Concent 34.4 G/DL (32.0-36.0) Red Cell Distribution Width 10.8 % (11.6-14.8) L Platelet Count 276 K/UL (150-450) Mean Platelet Volume 6.1 FL (6.5-10.1) L Neutrophils (%) (Auto) 69.4 % (45.0-75.0) Lymphocytes (%) (Auto) 21.1 % (20.0-45.0) Monocytes (%) (Auto) 7.6 % (1.0-10.0) Eosinophils (%) (Auto) 1.3 % (0.0-3.0) Basophils (%) (Auto) 0.6 % (0.0-2.0) Sodium Level 134 MMOL/L (136-145) L Potassium Level 3.5 MMOL/L (3.5-5.1) Chloride Level 99 MMOL/L (98-107) Carbon Dioxide Level 30 MMOL/L (21-32) Anion Gap 5 mmol/L (5-15) Blood Urea Nitrogen 10 mg/dL (7-18) Creatinine 0.8 MG/DL (0.55-1.30) Estimat Glomerular Filtration Rate > 60 mL/min (>60) Glucose Level 94 MG/DL (74-106) Calcium Level 7.5 MG/DL (8.5-10.1) L Total Bilirubin 0.3 MG/DL (0.2-1.0) Aspartate Amino Transf (AST/SGOT) 27 U/L (15-37) Alanine Aminotransferase (ALT/SGPT) 25 U/L (12-78) Alkaline Phosphatase 58 U/L (46-116) Total Protein 6.9 G/DL (6.4-8.2) Albumin 3.1 G/DL (3.4-5.0) L Globulin 3.8 g/dL Albumin/Globulin Ratio 0.8 (1.0-2.7) L Thyroid Stimulating Hormone (TSH) 2.774 uiU/mL (0.358-3.740) Vancomycin Level Trough 14.0 ug/mL (5.0-12.0) H Current Medications Current Medications Medications (Trade) Dose Ordered Sig/Bert Route PRN Reason Start Time Stop Time Status Last Admin Dose Admin Acetaminophen (Tylenol) 650 mg Q4H PRN ORAL T>100.5 F 06/08/17 08:00 07/08/17 07:44 06/08/17 16:33 Albuterol/ Ipratropium (Albuterol/ Ipratropium) 3 ml Q4H PRN HHN Shortness of Breath 06/08/17 07:45 06/13/17 07:44 Dextrose (Dextrose 50%) STAT PRN IV Hypoglycemia 06/08/17 07:45 07/08/17 07:44 Divalproex Sodium (Depakote ER) 500 mg EVERY 12 HOURS ORAL 06/08/17 09:00 07/08/17 08:59 06/09/17 08:55 Haloperidol Decanoate (Haldol) 50 mg ONCE ONCE IM 06/09/17 16:00 06/09/17 16:01 UNV Heparin Sodium (Porcine) (Heparin 5000 units/ml) 5,000 units EVERY 12 HOURS SUBQ 06/08/17 09:00 07/08/17 08:59 06/09/17 08:57 Levothyroxine Sodium (Synthroid) 150 mcg ACBREAKFAST ORAL 06/08/17 09:00 07/08/17 08:59 06/09/17 05:58 Morphine Sulfate (Morphine Sulfate) 2 mg Q4H PRN IVP PAIN 4-10 06/08/17 07:45 06/15/17 07:44 Nitroglycerin (Ntg) 0.4 mg Q5MIN X 3 DOSES PRN SL Prn Chest Pain 06/08/17 08:00 07/08/17 07:59 Ondansetron HCl (Zofran) 4 mg Q6H PRN IVP Nausea & Vomiting 06/08/17 07:45 07/08/17 07:44 Polyethylene Glycol (Miralax) 17 gm DAILYPRN PRN ORAL Constipation 06/08/17 07:45 07/08/17 07:44 Risperidone (RisperDAL) 30 mg QHS ORAL 06/09/17 21:00 07/09/17 20:59 UNV Temazepam (Restoril) 15 mg HSPRN PRN ORAL Insomnia 06/08/17 21:00 06/15/17 20:59 Vancomycin HCl (Vanco rx to dose) 1 ea DAILY PRN MISC . 06/08/17 08:00 07/08/17 07:59 Vancomycin HCl 1 gm/Dextrose 275 ml @ 183.3 mls/ hr Q8HR@0400,1200,2000 IVPB 06/08/17 20:00 06/13/17 19:59 06/09/17 12:14 GI: Plan Problems: (1) Abdominal pain (2) Anemia Plan symptomatic treatment at this time zofran prn pain mgmt bowel regime adv diet H2B prophylaxis fu labs, B12/folate refused GI procedures Discussed with Dr. Centeno. Thank you for this patient referral, we will follow. Marlee Brush N.P. Jun 09, 2017 16:30
[2017-06-09] MEDS ORDERED: Docusate 100mg cap ORAL PRN (17:00)
[2017-06-09] MEDS ORDERED: Haloperidol Decanoate 50mg Inj IM ONE (17:00)
[2017-06-09] MEDS: Cephalexin 500mg cap ORAL SCH ×3 (17:41→22:15)
--- NOTE | 2017-06-09 22:54 | Pulmonology Progress Note ---
Assessment/Plan Problems: (1) Psychosis (2) Anemia (3) Seizure (4) Hypothyroid Assessment/Plan improving check electrolytes psych evaluation dvt prophylaxis. Subjective ROS Limited/Unobtainable: No Constitutional: Reports: no symptoms HEENT: Repors: no symptoms Allergies: Coded Allergies: No Known Allergies (Unverified , 06/07/17) Objective Last 24 Hour Vital Signs Date Time Temp Pulse Resp B/P (MAP) Pulse Ox O2 Delivery O2 Flow Rate FiO2 06/09/17 16:00 97.3 88 20 127/100 100 06/09/17 11:32 97.6 85 19 121/86 99 Room Air 06/09/17 07:51 98.2 93 20 117/69 97 06/09/17 04:00 98.2 79 21 127/65 95 06/09/17 00:00 97.9 84 21 117/61 97 Intake and Output 06/08/17 06/09/17 19:00 07:00 Intake Total 1080 ml 549.9 ml Balance 1080 ml 549.9 ml Intake Oral 1080 ml IV Total 549.9 ml # Voids 1 3 Objective Objective General Appearance: no acute distress HEENT: normocephalic, atraumatic Respiratory/Chest: lungs clear, no respiratory distress, no accessory muscle use Cardiovascular: normal rate, no JVD, CL-femoral intact Abdomen: normal bowel sounds, soft, non tender Extremities: no edema Neurologic/Psychiatric: alert, responsive Musculoskeletal: normal muscle bulk Microbiology Date/Time Source Procedure Growth Status 06/07/17 20:30 Blood Blood Culture - Preliminary NO GROWTH AFTER 24 HOURS Resulted 06/07/17 20:25 Blood Blood Culture - Preliminary NO GROWTH AFTER 24 HOURS Resulted 06/08/17 14:15 Skin Gram Stain - Final Resulted 06/08/17 14:15 Skin Wound Culture - Preliminary NO GROWTH AFTER 24 HOURS Resulted Laboratory Tests 06/09/17 05:45: White Blood Count 7.2, Red Blood Count 3.95L, Hemoglobin 14.0L, Hematocrit 40.8L , Mean Corpuscular Volume 103H, Mean Corpuscular Hemoglobin 35.4H, Mean Corpuscular Hemoglobin Concent 34.4, Red Cell Distribution Width 10.8L, Platelet Count 276, Mean Platelet Volume 6.1L, Neutrophils (%) (Auto) 69.4, Lymphocytes (%) (Auto) 21.1, Monocytes (%) (Auto) 7.6, Eosinophils (%) (Auto) 1.3, Basophils (%) (Auto) 0.6, Sodium Level 134L, Potassium Level 3.5, Chloride Level 99, Carbon Dioxide Level 30, Anion Gap 5, Blood Urea Nitrogen 10, Creatinine 0.8, Estimat Glomerular Filtration Rate > 60, Glucose Level 94, Calcium Level 7.5L, Total Bilirubin 0.3, Aspartate Amino Transf (AST/SGOT) 27, Alanine Aminotransferase (ALT/SGPT) 25, Alkaline Phosphatase 58, Total Protein 6.9, Albumin 3.1L, Globulin 3.8, Albumin/Globulin Ratio 0.8L, Thyroid Stimulating Hormone (TSH) 2.774 06/09/17 09:00: Vancomycin Level Trough 14.0H Current Medications Medications (Trade) Dose Ordered Sig/Bert Route PRN Reason Start Time Stop Time Status Last Admin Dose Admin Acetaminophen (Tylenol) 650 mg Q4H PRN ORAL T>100.5 F 06/08/17 08:00 07/08/17 07:44 06/08/17 16:33 Albuterol/ Ipratropium (Albuterol/ Ipratropium) 3 ml Q4H PRN HHN Shortness of Breath 06/08/17 07:45 06/13/17 07:44 Cephalexin (Keflex) 500 mg FOUR TIMES A DAY ORAL 06/09/17 18:00 06/16/17 17:59 06/09/17 22:15 Dextrose (Dextrose 50%) STAT PRN IV Hypoglycemia 06/08/17 07:45 07/08/17 07:44 Divalproex Sodium (Depakote ER) 500 mg EVERY 12 HOURS ORAL 06/08/17 09:00 07/08/17 08:59 06/09/17 22:16 Docusate Sodium (Colace) 100 mg TID PRN ORAL Constipation 06/09/17 17:00 07/09/17 16:59 Heparin Sodium (Porcine) (Heparin 5000 units/ml) 5,000 units EVERY 12 HOURS SUBQ 06/08/17 09:00 07/08/17 08:59 06/09/17 22:17 Levothyroxine Sodium (Synthroid) 150 mcg ACBREAKFAST ORAL 06/08/17 09:00 07/08/17 08:59 06/09/17 05:58 Morphine Sulfate (Morphine Sulfate) 2 mg Q4H PRN IVP PAIN 4-10 06/08/17 07:45 06/15/17 07:44 Nitroglycerin (Ntg) 0.4 mg Q5MIN X 3 DOSES PRN SL Prn Chest Pain 06/08/17 08:00 07/08/17 07:59 Ondansetron HCl (Zofran) 4 mg Q6H PRN IVP Nausea & Vomiting 06/08/17 07:45 07/08/17 07:44 Polyethylene Glycol (Miralax) 17 gm DAILYPRN PRN ORAL Constipation 06/08/17 07:45 07/08/17 07:44 Risperidone (RisperDAL) 30 mg QHS ORAL 06/09/17 21:00 07/09/17 20:59 UNV Temazepam (Restoril) 15 mg HSPRN PRN ORAL Insomnia 06/08/17 21:00 06/15/17 20:59 AVILA GREENE Jun 09, 2017 22:53
--- NOTE | 2017-06-09 23:59 | Cardiology Report ---
APPROVED REPORT EKG Measurement Heart [id number] Normal sinus rhythm Incomplete right bundle branch block Borderline ECG
--- NOTE | 2017-06-10 00:16 | Consultation ---
History of Present Illness General Date patient seen: Jun 09, 2017 Chief Complaint: Lower Extremity Injury Referring physician: dr Lyons Reason for Consultation: ABDOMINAL PAIN Present Illness HPI 57 y/old male with PMH of psychiatric disorder, seizure disorder, HTN, anemia, depression, hypothyroidism was sent for altered mental status and bilateral foot lesions. the pt is delusional and disorganized. the pt is not able to provide hx Allergies: Coded Allergies: No Known Allergies (Unverified , 06/07/17) Medication History Scheduled Bisacodyl* (Dulcolax*), 10 MG ORAL ONCE, (Reported) Divalproex Sodium* (Depakote Er*), 500 MG ORAL EVERY 12 HOURS, (Reported) Docusate Sodium* (Colace*), 100 MG ORAL DAILY, (Reported) Levothyroxine Sodium* (Levothyroxine Sodium*), 150 MCG ORAL DAILY, (Reported) Magnesium Hydroxide* (Milk Of Magnesia*), 30 ML ORAL DAILY, (Reported) Metoprolol Tartrate* (Metoprolol Tartrate*), 50 MG ORAL EVERY 12 HOURS, ( Reported) Na Phos,M-B/Na Phos,Di-Ba* (Fleet Enema*), 133 ML RECTAL DAILY, (Reported) Risperidone* (Risperdal*), 1 MG PO DAILY, (Reported) Scheduled PRN Acetaminophen (Tylenol), 500 MG ORAL Q6H PRN for Prn Pain/Headache/Temp > 101, ( Reported) Miscellaneous Medications Haloperidol Lactate (Haloperidol), 1 MG IJ, (Reported) Patient History Limited by: medical condition History Provided By: Patient, Significant Other, PMD Healthcare decision maker Danna Nino Resuscitation status Full Code Advanced Directive on File No Past Medical/Surgical History Past Medical/Surgical History: (1) Psychosis (2) Skin ulcers of both feet (3) Anemia (4) Seizure (5) HTN (hypertension) (6) Hypothyroid (7) Abdominal pain Review of Systems Psychiatric: Reports: prior hx, anxiety, depressed feelings, emotional problems , hallucinations Physical Exam General Appearance: no apparent distress, alert, confused, agitated Neurologic: alert, disoriented, depressed affect Last 24 Hour Vital Signs Date Time Temp Pulse Resp B/P (MAP) Pulse Ox O2 Delivery O2 Flow Rate FiO2 06/09/17 16:00 97.3 88 20 127/100 100 06/09/17 11:32 97.6 85 19 121/86 99 Room Air 06/09/17 07:51 98.2 93 20 117/69 97 06/09/17 04:00 98.2 79 21 127/65 95 Intake and Output 06/09/17 06/10/17 19:00 07:00 Intake Total 690 ml Output Total 500 ml Balance 190 ml Intake Oral 690 ml IV Total 0 ml Output Urine Total 500 ml # Voids 3 Laboratory Tests Test 06/09/17 05:45 06/09/17 09:00 White Blood Count 7.2 K/UL (4.8-10.8) Red Blood Count 3.95 M/UL (4.70-6.10) L Hemoglobin 14.0 G/DL (14.2-18.0) L Hematocrit 40.8 % (42.0-52.0) L Mean Corpuscular Volume 103 FL (80-99) H Mean Corpuscular Hemoglobin 35.4 PG (27.0-31.0) H Mean Corpuscular Hemoglobin Concent 34.4 G/DL (32.0-36.0) Red Cell Distribution Width 10.8 % (11.6-14.8) L Platelet Count 276 K/UL (150-450) Mean Platelet Volume 6.1 FL (6.5-10.1) L Neutrophils (%) (Auto) 69.4 % (45.0-75.0) Lymphocytes (%) (Auto) 21.1 % (20.0-45.0) Monocytes (%) (Auto) 7.6 % (1.0-10.0) Eosinophils (%) (Auto) 1.3 % (0.0-3.0) Basophils (%) (Auto) 0.6 % (0.0-2.0) Sodium Level 134 MMOL/L (136-145) L Potassium Level 3.5 MMOL/L (3.5-5.1) Chloride Level 99 MMOL/L (98-107) Carbon Dioxide Level 30 MMOL/L (21-32) Anion Gap 5 mmol/L (5-15) Blood Urea Nitrogen 10 mg/dL (7-18) Creatinine 0.8 MG/DL (0.55-1.30) Estimat Glomerular Filtration Rate > 60 mL/min (>60) Glucose Level 94 MG/DL (74-106) Calcium Level 7.5 MG/DL (8.5-10.1) L Total Bilirubin 0.3 MG/DL (0.2-1.0) Aspartate Amino Transf (AST/SGOT) 27 U/L (15-37) Alanine Aminotransferase (ALT/SGPT) 25 U/L (12-78) Alkaline Phosphatase 58 U/L (46-116) Total Protein 6.9 G/DL (6.4-8.2) Albumin 3.1 G/DL (3.4-5.0) L Globulin 3.8 g/dL Albumin/Globulin Ratio 0.8 (1.0-2.7) L Thyroid Stimulating Hormone (TSH) 2.774 uiU/mL (0.358-3.740) Vancomycin Level Trough 14.0 ug/mL (5.0-12.0) H Height (Feet): 6 Height (Inches): 2.00 Weight (Pounds): 210 Medications Current Medications Medications (Trade) Dose Ordered Sig/Bert Route PRN Reason Start Time Stop Time Status Last Admin Dose Admin Acetaminophen (Tylenol) 650 mg Q4H PRN ORAL T>100.5 F 06/08/17 08:00 07/08/17 07:44 06/08/17 16:33 Albuterol/ Ipratropium (Albuterol/ Ipratropium) 3 ml Q4H PRN HHN Shortness of Breath 06/08/17 07:45 06/13/17 07:44 Cephalexin (Keflex) 500 mg FOUR TIMES A DAY ORAL 06/09/17 18:00 06/16/17 17:59 06/09/17 17:41 Dextrose (Dextrose 50%) STAT PRN IV Hypoglycemia 06/08/17 07:45 07/08/17 07:44 Divalproex Sodium (Depakote ER) 500 mg EVERY 12 HOURS ORAL 06/08/17 09:00 07/08/17 08:59 06/09/17 08:55 Docusate Sodium (Colace) 100 mg TID PRN ORAL Constipation 06/09/17 17:00 07/09/17 16:59 Heparin Sodium (Porcine) (Heparin 5000 units/ml) 5,000 units EVERY 12 HOURS SUBQ 06/08/17 09:00 07/08/17 08:59 06/09/17 22:17 Levothyroxine Sodium (Synthroid) 150 mcg ACBREAKFAST ORAL 06/08/17 09:00 07/08/17 08:59 06/09/17 05:58 Morphine Sulfate (Morphine Sulfate) 2 mg Q4H PRN IVP PAIN 4-10 06/08/17 07:45 06/15/17 07:44 Nitroglycerin (Ntg) 0.4 mg Q5MIN X 3 DOSES PRN SL Prn Chest Pain 06/08/17 08:00 07/08/17 07:59 Ondansetron HCl (Zofran) 4 mg Q6H PRN IVP Nausea & Vomiting 06/08/17 07:45 07/08/17 07:44 Polyethylene Glycol (Miralax) 17 gm DAILYPRN PRN ORAL Constipation 06/08/17 07:45 07/08/17 07:44 Risperidone (RisperDAL) 30 mg QHS ORAL 06/09/17 21:00 07/09/17 20:59 UNV Temazepam (Restoril) 15 mg HSPRN PRN ORAL Insomnia 06/08/17 21:00 06/15/17 20:59 Assessment/Plan Status: not improved, unchanged Assessment/Plan schizophrenia -risperdal 3mg qhs -haldol dec 50mg Flaco Cueto M.D. Jun 10, 2017 00:16
[2017-06-10 08:00] VITALS: BP 120/75
[2017-06-10] MEDS: Heparin 5000 units/ml inj SUBQ SCH ×3 (09:00→21:05)
[2017-06-10] MEDS: Depakote ER 500mg tab ORAL SCH ×3 (09:00→21:02)
[2017-06-10] MEDS: Cephalexin 500mg cap ORAL SCH ×5 (09:00→21:02)
[2017-06-10 11:16] LABS: BASOPHILS % (AUTO) 0.5 % (0.0-2.0); EOSINOPHILS % (AUTO) 1.5 % (0.0-3.0); HEMATOCRIT 44.1 % (42.0-52.0); HEMOGLOBIN 14.9 G/DL (14.2-18.0); LYMPHOCYTES % (AUTO) 19.3 % (20.0-45.0); MEAN CORPUSCULAR VOLUME 102 FL (80-99); MONOCYTES % (AUTO) 8.2 % (1.0-10.0); NEUTROPHILS % (AUTO) 70.5 % (45.0-75.0); PLATELET COUNT 316 K/UL (150-450); RED BLOOD COUNT 4.32 M/UL (4.70-6.10); RED CELL DISTRIBUTION WIDTH 10.7 % (11.6-14.8); WHITE BLOOD COUNT 8.3 K/UL (4.8-10.8)
[2017-06-10 11:38] LABS: ANION GAP 9 mmol/L (5-15); BLOOD UREA NITROGEN 13 mg/dL (7-18); CALCIUM 8.8 MG/DL (8.5-10.1); CARBON DIOXIDE 26 MMOL/L (21-32); CHLORIDE 99 MMOL/L (98-107); CREATININE 0.8 MG/DL (0.55-1.30); POTASSIUM 3.9 MMOL/L (3.5-5.1); SODIUM 134 MMOL/L (136-145)
[2017-06-10 11:51] VITALS: BP 101/63
--- NOTE | 2017-06-10 14:10 | Infectious Diseases Prog Note ---
Assessment/Plan Assessment/Plan A; Left foot cellulitis Schizophrenia HPN P: continue PO Keflex Subjective ROS Limited/Unobtainable: Yes Constitutional: Reports: no symptoms Respiratory: Reports: no symptoms Musculoskeletal: Reports: no symptoms Allergies: Coded Allergies: No Known Allergies (Unverified , 06/07/17) Objective Vital Signs Last 24 Hour Vital Signs Date Time Temp Pulse Resp B/P (MAP) Pulse Ox O2 Delivery O2 Flow Rate FiO2 06/10/17 11:51 97.8 102 19 101/63 100 06/10/17 08:00 97.7 84 18 120/75 100 06/09/17 16:00 97.3 88 20 127/100 100 Height (Feet): 6 Height (Inches): 2.00 Weight (Pounds): 210 General Appearance: no acute distress Respiratory/Chest: lungs clear Cardiovascular: normal rate Abdomen: soft, non tender Neurologic/Psychiatric: alert, responsive, disoriented, other Microbiology Date/Time Source Procedure Growth Status 06/07/17 20:30 Blood Blood Culture - Preliminary NO GROWTH AFTER 48 HOURS Resulted 06/07/17 20:25 Blood Blood Culture - Preliminary NO GROWTH AFTER 48 HOURS Resulted 06/08/17 14:15 Skin Gram Stain - Final Resulted 06/08/17 14:15 Skin Wound Culture - Preliminary NO GROWTH AFTER 24 HOURS Resulted 06/08/17 10:00 Nasal Nares MRSA Culture - Final NO METHICILLIN RESISTANT STAPH AUREUS... Complete 06/08/17 10:00 Rectum VRE Culture - Final NO VANCOMYCIN RESISTANT ENTEROCOCCUS ... Complete Laboratory Tests Test 06/10/17 11:05 White Blood Count 8.3 K/UL (4.8-10.8) Red Blood Count 4.32 M/UL (4.70-6.10) L Hemoglobin 14.9 G/DL (14.2-18.0) Hematocrit 44.1 % (42.0-52.0) Mean Corpuscular Volume 102 FL (80-99) H Mean Corpuscular Hemoglobin 34.5 PG (27.0-31.0) H Mean Corpuscular Hemoglobin Concent 33.9 G/DL (32.0-36.0) Red Cell Distribution Width 10.7 % (11.6-14.8) L Platelet Count 316 K/UL (150-450) Mean Platelet Volume 6.1 FL (6.5-10.1) L Neutrophils (%) (Auto) 70.5 % (45.0-75.0) Lymphocytes (%) (Auto) 19.3 % (20.0-45.0) L Monocytes (%) (Auto) 8.2 % (1.0-10.0) Eosinophils (%) (Auto) 1.5 % (0.0-3.0) Basophils (%) (Auto) 0.5 % (0.0-2.0) Sodium Level 134 MMOL/L (136-145) L Potassium Level 3.9 MMOL/L (3.5-5.1) Chloride Level 99 MMOL/L (98-107) Carbon Dioxide Level 26 MMOL/L (21-32) Anion Gap 9 mmol/L (5-15) Blood Urea Nitrogen 13 mg/dL (7-18) Creatinine 0.8 MG/DL (0.55-1.30) Estimat Glomerular Filtration Rate > 60 mL/min (>60) Glucose Level 93 MG/DL (74-106) Calcium Level 8.8 MG/DL (8.5-10.1) Vitamin B12 Level 498 PG/ML (193-986) Folate 15.9 NG/ML (8.6-58.9) Current Medications Medications (Trade) Dose Ordered Sig/Bert Route PRN Reason Start Time Stop Time Status Last Admin Dose Admin Acetaminophen (Tylenol) 650 mg Q4H PRN ORAL T>100.5 F 06/08/17 08:00 07/08/17 07:44 06/08/17 16:33 Albuterol/ Ipratropium (Albuterol/ Ipratropium) 3 ml Q4H PRN HHN Shortness of Breath 06/08/17 07:45 06/13/17 07:44 Cephalexin (Keflex) 500 mg FOUR TIMES A DAY ORAL 06/09/17 18:00 06/16/17 17:59 06/09/17 17:41 Dextrose (Dextrose 50%) STAT PRN IV Hypoglycemia 06/08/17 07:45 07/08/17 07:44 Divalproex Sodium (Depakote ER) 500 mg EVERY 12 HOURS ORAL 06/08/17 09:00 07/08/17 08:59 06/09/17 08:55 Docusate Sodium (Colace) 100 mg TID PRN ORAL Constipation 06/09/17 17:00 07/09/17 16:59 Heparin Sodium (Porcine) (Heparin 5000 units/ml) 5,000 units EVERY 12 HOURS SUBQ 06/08/17 09:00 07/08/17 08:59 06/09/17 22:17 Levothyroxine Sodium (Synthroid) 150 mcg ACBREAKFAST ORAL 06/08/17 09:00 07/08/17 08:59 06/09/17 05:58 Morphine Sulfate (Morphine Sulfate) 2 mg Q4H PRN IVP PAIN 4-10 06/08/17 07:45 06/15/17 07:44 Nitroglycerin (Ntg) 0.4 mg Q5MIN X 3 DOSES PRN SL Prn Chest Pain 06/08/17 08:00 07/08/17 07:59 Ondansetron HCl (Zofran) 4 mg Q6H PRN IVP Nausea & Vomiting 06/08/17 07:45 07/08/17 07:44 Polyethylene Glycol (Miralax) 17 gm DAILYPRN PRN ORAL Constipation 06/08/17 07:45 07/08/17 07:44 Risperidone (RisperDAL) 3 mg QHS ORAL 06/10/17 21:00 07/10/17 20:59 Temazepam (Restoril) 15 mg HSPRN PRN ORAL Insomnia 06/08/17 21:00 06/15/17 20:59 PEDRO LAO Jun 10, 2017 14:10
--- NOTE | 2017-06-10 14:34 | GI Progress Note ---
Assessment/Plan Problems: (1) Abdominal pain ICD Codes: R10.9 - Unspecified abdominal pain SNOMED: 76580192 (2) Anemia ICD Codes: D64.9 - Anemia, unspecified SNOMED: 118229742 Status: stable Status Narrative Discussed with Dr. Centeno. Assessment/Plan symptomatic treatment at this time zofran prn pain mgmt bowel regime adv diet H2B prophylaxis fu labs refused GI procedures Subjective Gastrointestinal/Abdominal: Reports: no symptoms Objective Last 24 Hour Vital Signs Date Time Temp Pulse Resp B/P (MAP) Pulse Ox O2 Delivery O2 Flow Rate FiO2 06/10/17 11:51 97.8 102 19 101/63 100 06/10/17 08:00 97.7 84 18 120/75 100 06/09/17 16:00 97.3 88 20 127/100 100 Intake and Output 06/09/17 06/10/17 19:00 07:00 Intake Total 690 ml Output Total 500 ml Balance 190 ml Intake Oral 690 ml IV Total 0 ml Output Urine Total 500 ml # Voids 3 3 # Bowel Movements 1 Laboratory Tests Test 06/10/17 11:05 White Blood Count 8.3 K/UL (4.8-10.8) Red Blood Count 4.32 M/UL (4.70-6.10) L Hemoglobin 14.9 G/DL (14.2-18.0) Hematocrit 44.1 % (42.0-52.0) Mean Corpuscular Volume 102 FL (80-99) H Mean Corpuscular Hemoglobin 34.5 PG (27.0-31.0) H Mean Corpuscular Hemoglobin Concent 33.9 G/DL (32.0-36.0) Red Cell Distribution Width 10.7 % (11.6-14.8) L Platelet Count 316 K/UL (150-450) Mean Platelet Volume 6.1 FL (6.5-10.1) L Neutrophils (%) (Auto) 70.5 % (45.0-75.0) Lymphocytes (%) (Auto) 19.3 % (20.0-45.0) L Monocytes (%) (Auto) 8.2 % (1.0-10.0) Eosinophils (%) (Auto) 1.5 % (0.0-3.0) Basophils (%) (Auto) 0.5 % (0.0-2.0) Sodium Level 134 MMOL/L (136-145) L Potassium Level 3.9 MMOL/L (3.5-5.1) Chloride Level 99 MMOL/L (98-107) Carbon Dioxide Level 26 MMOL/L (21-32) Anion Gap 9 mmol/L (5-15) Blood Urea Nitrogen 13 mg/dL (7-18) Creatinine 0.8 MG/DL (0.55-1.30) Estimat Glomerular Filtration Rate > 60 mL/min (>60) Glucose Level 93 MG/DL (74-106) Calcium Level 8.8 MG/DL (8.5-10.1) Vitamin B12 Level 498 PG/ML (193-986) Folate 15.9 NG/ML (8.6-58.9) Height (Feet): 6 Height (Inches): 2.00 Weight (Pounds): 210 General Appearance: WD/WN, no apparent distress, alert Cardiovascular: normal rate Respiratory/Chest: normal breath sounds, no respiratory distress Abdominal Exam: normal bowel sounds, non tender, soft Extremities: normal range of motion, non-tender Marlee Brush N.P. Jun 10, 2017 14:34
--- NOTE | 2017-06-10 14:58 | General Progress Note ---
Assessment/Plan Problem List: (1) Psychosis ICD Codes: F29 - Unspecified psychosis not due to a substance or known physiological condition SNOMED: 90466782, 38679553 Qualifiers: Qualified Codes: F29 - Unspecified psychosis not due to a substance or known physiological condition (2) Skin ulcers of both feet ICD Codes: L97.519 - Non-pressure chronic ulcer of other part of right foot with unspecified severity; L97.529 - Non-pressure chronic ulcer of other part of left foot with unspecified severity SNOMED: 95533097, 34970899 (3) HTN (hypertension) ICD Codes: I10 - Essential (primary) hypertension SNOMED: 62563418 (4) Seizure ICD Codes: R56.9 - Unspecified convulsions SNOMED: 17651870 (5) Anemia ICD Codes: D64.9 - Anemia, unspecified SNOMED: 499948148 (6) Hypothyroid ICD Codes: E03.9 - Hypothyroidism, unspecified SNOMED: 13211576 Status: stable, progressing, tolerating diet Assessment/Plan ot pt diet abx wound care cbc bmp am psyc transfer Subjective Constitutional: Reports: weakness Allergies: Coded Allergies: No Known Allergies (Unverified , 06/07/17) All Systems: reviewed and negative except above Subjective confused in bed Objective Last 24 Hour Vital Signs Date Time Temp Pulse Resp B/P (MAP) Pulse Ox O2 Delivery O2 Flow Rate FiO2 06/10/17 11:51 97.8 102 19 101/63 100 06/10/17 08:00 97.7 84 18 120/75 100 06/09/17 16:00 97.3 88 20 127/100 100 Intake and Output 06/09/17 06/10/17 19:00 07:00 Intake Total 690 ml Output Total 500 ml Balance 190 ml Intake Oral 690 ml IV Total 0 ml Output Urine Total 500 ml # Voids 3 3 # Bowel Movements 1 Laboratory Tests 06/10/17 11:05: White Blood Count 8.3, Red Blood Count 4.32L, Hemoglobin 14.9, Hematocrit 44.1, Mean Corpuscular Volume 102H, Mean Corpuscular Hemoglobin 34.5H, Mean Corpuscular Hemoglobin Concent 33.9, Red Cell Distribution Width 10.7L, Platelet Count 316, Mean Platelet Volume 6.1L, Neutrophils (%) (Auto) 70.5, Lymphocytes (%) (Auto) 19.3L, Monocytes (%) (Auto) 8.2, Eosinophils (%) (Auto) 1.5, Basophils (%) (Auto) 0.5, Sodium Level 134L, Potassium Level 3.9, Chloride Level 99, Carbon Dioxide Level 26, Anion Gap 9, Blood Urea Nitrogen 13, Creatinine 0.8, Estimat Glomerular Filtration Rate > 60, Glucose Level 93, Calcium Level 8.8, Vitamin B12 Level 498, Folate 15.9 Height (Feet): 6 Height (Inches): 2.00 Weight (Pounds): 210 General Appearance: confused EENT: normal ENT inspection Neck: normal alignment Cardiovascular: normal peripheral pulses, normal rate, regular rhythm Respiratory/Chest: chest wall non-tender, lungs clear, normal breath sounds Abdomen: normal bowel sounds, non tender, soft Extremities: normal inspection Edema: no edema noted Arm (L), no edema noted Arm (R), no edema noted Leg (L), no edema noted Leg (R), no edema noted Pedal (L), no edema noted Pedal (R), no edema noted Generalized Neurologic: motor weakness Skin: normal pigmentation, warm/dry MILAD MARCUS Jun 10, 2017 14:58
--- NOTE | 2017-06-10 15:33 | Diagnostic Imaging Report ---
Indication: Chest pain Technique: XRAY Chest 1v Comparison: None Findings: Patient is rotated limiting evaluation. Cardiomediastinal silhouette is grossly within normal limits. There is no obvious consolidation or pleural effusion. Degenerative changes of the spine are seen. Impression: Patient rotation limiting evaluation without obvious acute cardiopulmonary disease. Repeat PA and lateral views of the chest recommended as indicated.
--- NOTE | 2017-06-10 15:33 | Diagnostic Imaging Report ---
Indication: Right foot pain Technique: Right foot 3 views Comparison: None Findings: There is no acute fracture or dislocation. Posterior calcaneal enthesophyte is seen. Mild soft tissue swelling is noted. Impression: No acute osseous abnormality. Further evaluation recommended as indicated.
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
[2017-06-10 15:53] VITALS: BP 139/87
[2017-06-10 20:00] VITALS: BP 133/80
--- NOTE | 2017-06-10 22:49 | Pulmonology Progress Note ---
Assessment/Plan Problems: (1) Psychosis (2) HTN (hypertension) (3) Hypothyroid (4) Seizure Assessment/Plan no new complains psych evaluaiton appreciated dc planning dvt prophylaixs. Subjective ROS Limited/Unobtainable: No Constitutional: Reports: no symptoms HEENT: Repors: no symptoms Respiratory: Reports: no symptoms Allergies: Coded Allergies: No Known Allergies (Unverified , 06/07/17) Objective Last 24 Hour Vital Signs Date Time Temp Pulse Resp B/P (MAP) Pulse Ox O2 Delivery O2 Flow Rate FiO2 06/10/17 20:00 98.1 82 21 133/80 97 06/10/17 15:53 97.7 88 18 139/87 100 06/10/17 11:51 97.8 102 19 101/63 100 06/10/17 08:00 97.7 84 18 120/75 100 Intake and Output 06/09/17 06/10/17 19:00 07:00 Intake Total 690 ml Output Total 500 ml Balance 190 ml Intake Oral 690 ml IV Total 0 ml Output Urine Total 500 ml # Voids 3 3 # Bowel Movements 1 Objective Objective General Appearance: no acute distress HEENT: normocephalic, atraumatic Respiratory/Chest: lungs clear, no respiratory distress, no accessory muscle use Cardiovascular: normal rate, no JVD, CL-femoral intact Abdomen: normal bowel sounds, soft, non tender Extremities: no edema Neurologic/Psychiatric: alert, responsive Musculoskeletal: normal muscle bulk Microbiology Date/Time Source Procedure Growth Status 06/08/17 14:15 Skin Gram Stain - Final Resulted 06/08/17 14:15 Skin Wound Culture - Preliminary NO GROWTH AFTER 24 HOURS Resulted 06/08/17 10:00 Nasal Nares MRSA Culture - Final NO METHICILLIN RESISTANT STAPH AUREUS... Complete 06/08/17 10:00 Rectum VRE Culture - Final NO VANCOMYCIN RESISTANT ENTEROCOCCUS ... Complete Laboratory Tests 06/10/17 11:05: White Blood Count 8.3, Red Blood Count 4.32L, Hemoglobin 14.9, Hematocrit 44.1, Mean Corpuscular Volume 102H, Mean Corpuscular Hemoglobin 34.5H, Mean Corpuscular Hemoglobin Concent 33.9, Red Cell Distribution Width 10.7L, Platelet Count 316, Mean Platelet Volume 6.1L, Neutrophils (%) (Auto) 70.5, Lymphocytes (%) (Auto) 19.3L, Monocytes (%) (Auto) 8.2, Eosinophils (%) (Auto) 1.5, Basophils (%) (Auto) 0.5, Sodium Level 134L, Potassium Level 3.9, Chloride Level 99, Carbon Dioxide Level 26, Anion Gap 9, Blood Urea Nitrogen 13, Creatinine 0.8, Estimat Glomerular Filtration Rate > 60, Glucose Level 93, Calcium Level 8.8, Vitamin B12 Level 498, Folate 15.9 Current Medications Medications (Trade) Dose Ordered Sig/Bert Route PRN Reason Start Time Stop Time Status Last Admin Dose Admin Acetaminophen (Tylenol) 650 mg Q4H PRN ORAL T>100.5 F 06/08/17 08:00 07/08/17 07:44 06/08/17 16:33 Albuterol/ Ipratropium (Albuterol/ Ipratropium) 3 ml Q4H PRN HHN Shortness of Breath 06/08/17 07:45 06/13/17 07:44 Cephalexin (Keflex) 500 mg FOUR TIMES A DAY ORAL 06/09/17 18:00 06/16/17 17:59 06/10/17 21:02 Dextrose (Dextrose 50%) STAT PRN IV Hypoglycemia 06/08/17 07:45 07/08/17 07:44 Divalproex Sodium (Depakote ER) 500 mg EVERY 12 HOURS ORAL 06/08/17 09:00 07/08/17 08:59 06/10/17 21:02 Docusate Sodium (Colace) 100 mg TID PRN ORAL Constipation 06/09/17 17:00 07/09/17 16:59 Heparin Sodium (Porcine) (Heparin 5000 units/ml) 5,000 units EVERY 12 HOURS SUBQ 06/08/17 09:00 07/08/17 08:59 06/10/17 21:05 Levothyroxine Sodium (Synthroid) 150 mcg ACBREAKFAST ORAL 06/08/17 09:00 07/08/17 08:59 06/09/17 05:58 Morphine Sulfate (Morphine Sulfate) 2 mg Q4H PRN IVP PAIN 4-10 06/08/17 07:45 06/15/17 07:44 Nitroglycerin (Ntg) 0.4 mg Q5MIN X 3 DOSES PRN SL Prn Chest Pain 06/08/17 08:00 07/08/17 07:59 Ondansetron HCl (Zofran) 4 mg Q6H PRN IVP Nausea & Vomiting 06/08/17 07:45 07/08/17 07:44 Polyethylene Glycol (Miralax) 17 gm DAILYPRN PRN ORAL Constipation 06/08/17 07:45 07/08/17 07:44 Risperidone (RisperDAL) 3 mg QHS ORAL 06/10/17 21:00 07/10/17 20:59 06/10/17 21:02 Temazepam (Restoril) 15 mg HSPRN PRN ORAL Insomnia 06/08/17 21:00 06/15/17 20:59 AVILA GREENE Jun 10, 2017 22:49
[2017-06-11] VITALS: BP 127/79
[2017-06-11 04:00] VITALS: BP 130/39
[2017-06-11 08:00] VITALS: BP 130/86
[2017-06-11] MEDS: Depakote ER 500mg tab ORAL SCH ×2 (09:00→09:06)
[2017-06-11] MEDS: Cephalexin 500mg cap ORAL SCH ×3 (09:00→13:00)
[2017-06-11] MEDS: Heparin 5000 units/ml inj SUBQ SCH (09:07)
--- NOTE | 2017-06-11 09:43 | Progress Note ---
DATE: 06/10/2017 SUBJECTIVE: The patient has presented with anxiety, agitation, disorganized speech, and behavior. Poor insight and judgment. The patient is not able to be engaged during the evaluation, attempts to come out of the room, and gets easily agitated. Received Haldol Decanoate last night. The patient is delusional and refusing medications and procedure. MENTAL STATUS EXAMINATION: The patient is alert and oriented times self and place. Mood is irritable. Affect is constricted. Congruent with mood. Thought process is disorganized. Thought content, positive for persecutory delusions. Insight and judgment is impaired. ASSESSMENT: Schizophrenia versus schizoaffective disorder. PLAN: 1. We will continue the risperidone. 2. Continue the Depakote. 3. We will continue to follow and readjust the medications. Flaco Cueto M.D. DR: Tiera JOB#: [id number] CC:
--- NOTE | 2017-06-11 11:37 | General Progress Note ---
Assessment/Plan Problem List: (1) Psychosis ICD Codes: F29 - Unspecified psychosis not due to a substance or known physiological condition SNOMED: 25992799, 65802425 Qualifiers: Qualified Codes: F29 - Unspecified psychosis not due to a substance or known physiological condition (2) Skin ulcers of both feet ICD Codes: L97.519 - Non-pressure chronic ulcer of other part of right foot with unspecified severity; L97.529 - Non-pressure chronic ulcer of other part of left foot with unspecified severity SNOMED: 94435301, 85294991 (3) HTN (hypertension) ICD Codes: I10 - Essential (primary) hypertension SNOMED: 65029297 (4) Seizure ICD Codes: R56.9 - Unspecified convulsions SNOMED: 29896569 (5) Anemia ICD Codes: D64.9 - Anemia, unspecified SNOMED: 082003313 (6) Hypothyroid ICD Codes: E03.9 - Hypothyroidism, unspecified SNOMED: 02129114 Status: stable, progressing, tolerating diet Assessment/Plan ot pt diet abx wound care dc if clear Subjective Constitutional: Reports: weakness Allergies: Coded Allergies: No Known Allergies (Unverified , 06/07/17) All Systems: reviewed and negative except above Subjective confused in bed Objective Last 24 Hour Vital Signs Date Time Temp Pulse Resp B/P (MAP) Pulse Ox O2 Delivery O2 Flow Rate FiO2 06/11/17 08:00 98.0 94 20 130/86 99 06/11/17 04:00 97.5 81 21 130/39 97 06/11/17 00:00 97.9 76 21 127/79 98 06/11/17 00:00 Room Air 06/10/17 20:00 Room Air 06/10/17 20:00 98.1 82 21 133/80 97 06/10/17 15:53 97.7 88 18 139/87 100 06/10/17 11:51 97.8 102 19 101/63 100 Intake and Output 06/10/17 06/11/17 19:00 07:00 Intake Total 920 ml Balance 920 ml Intake Oral 920 ml # Voids 6 3 Height (Feet): 6 Height (Inches): 2.00 Weight (Pounds): 210 General Appearance: confused EENT: normal ENT inspection Neck: normal alignment Cardiovascular: normal peripheral pulses, normal rate, regular rhythm Respiratory/Chest: chest wall non-tender, lungs clear, normal breath sounds Abdomen: normal bowel sounds, non tender, soft Extremities: normal inspection Edema: no edema noted Arm (L), no edema noted Arm (R), no edema noted Leg (L), no edema noted Leg (R), no edema noted Pedal (L), no edema noted Pedal (R), no edema noted Generalized Neurologic: motor weakness Skin: normal pigmentation, warm/dry MILAD MARCUS Jun 11, 2017 11:37
[2017-06-11 12:00] VITALS: BP 131/86
--- NOTE | 2017-06-11 12:42 | Infectious Diseases Prog Note ---
Assessment/Plan Assessment/Plan A; Left foot cellulitis Schizophrenia HPN P: continue PO Keflex X 3 days clear for discharge to SNF Subjective ROS Limited/Unobtainable: Yes Constitutional: Reports: no symptoms Musculoskeletal: Reports: no symptoms Allergies: Coded Allergies: No Known Allergies (Unverified , 06/07/17) Objective Vital Signs Last 24 Hour Vital Signs Date Time Temp Pulse Resp B/P (MAP) Pulse Ox O2 Delivery O2 Flow Rate FiO2 06/11/17 12:00 97.9 89 20 131/86 98 06/11/17 08:00 98.0 94 20 130/86 99 06/11/17 04:00 97.5 81 21 130/39 97 06/11/17 00:00 97.9 76 21 127/79 98 06/11/17 00:00 Room Air 06/10/17 20:00 Room Air 06/10/17 20:00 98.1 82 21 133/80 97 06/10/17 15:53 97.7 88 18 139/87 100 Height (Feet): 6 Height (Inches): 2.00 Weight (Pounds): 210 General Appearance: no acute distress HEENT: mucous membranes moist Respiratory/Chest: lungs clear Cardiovascular: normal rate Abdomen: soft, non tender Extremities: no edema Neurologic/Psychiatric: alert, responsive Microbiology Date/Time Source Procedure Growth Status 06/08/17 14:15 Skin Gram Stain - Final Resulted 06/08/17 14:15 Wound Culture - Preliminary Staphylococcus Sp Coag Neg Resulted Current Medications Medications (Trade) Dose Ordered Sig/Bert Route PRN Reason Start Time Stop Time Status Last Admin Dose Admin Acetaminophen (Tylenol) 650 mg Q4H PRN ORAL T>100.5 F 06/08/17 08:00 07/08/17 07:44 06/08/17 16:33 Albuterol/ Ipratropium (Albuterol/ Ipratropium) 3 ml Q4H PRN HHN Shortness of Breath 06/08/17 07:45 06/13/17 07:44 Cephalexin (Keflex) 500 mg FOUR TIMES A DAY ORAL 06/09/17 18:00 06/16/17 17:59 06/10/17 21:02 Dextrose (Dextrose 50%) STAT PRN IV Hypoglycemia 06/08/17 07:45 07/08/17 07:44 Divalproex Sodium (Depakote ER) 500 mg EVERY 12 HOURS ORAL 06/08/17 09:00 07/08/17 08:59 06/10/17 21:02 Docusate Sodium (Colace) 100 mg TID PRN ORAL Constipation 06/09/17 17:00 07/09/17 16:59 Heparin Sodium (Porcine) (Heparin 5000 units/ml) 5,000 units EVERY 12 HOURS SUBQ 06/08/17 09:00 07/08/17 08:59 06/11/17 09:07 Levothyroxine Sodium (Synthroid) 150 mcg ACBREAKFAST ORAL 06/08/17 09:00 07/08/17 08:59 06/09/17 05:58 Morphine Sulfate (Morphine Sulfate) 2 mg Q4H PRN IVP PAIN 4-10 06/08/17 07:45 06/15/17 07:44 Nitroglycerin (Ntg) 0.4 mg Q5MIN X 3 DOSES PRN SL Prn Chest Pain 06/08/17 08:00 07/08/17 07:59 Ondansetron HCl (Zofran) 4 mg Q6H PRN IVP Nausea & Vomiting 06/08/17 07:45 07/08/17 07:44 Polyethylene Glycol (Miralax) 17 gm DAILYPRN PRN ORAL Constipation 06/08/17 07:45 07/08/17 07:44 Risperidone (RisperDAL) 3 mg QHS ORAL 06/10/17 21:00 07/10/17 20:59 06/10/17 21:02 Temazepam (Restoril) 15 mg HSPRN PRN ORAL Insomnia 06/08/17 21:00 06/15/17 20:59 PEDRO LAO Jun 11, 2017 12:42
[2017-06-11] MEDS ORDERED: ACETAMINOPHEN325 M1 ORAL (14:17)
[2017-06-11] MEDS ORDERED: CEPHALEXIN500 MG ORAL (14:18)
[2017-06-11] MEDS ORDERED: COLACE100 MG ORAL (14:19)
[2017-06-11] MEDS ORDERED: HEPARIN SO5000 UNIT2 SUBQ (14:20)
[2017-06-11] MEDS ORDERED: DUONEB 0.5-3(2.53 ML HHN (14:21)
[2017-06-11] MEDS ORDERED: NITROSTAT0.4 M1 SL (14:22)
[2017-06-11] MEDS ORDERED: MIRALAX17 G2 ORAL (14:23)
[2017-06-11] MEDS ORDERED: RISPERIDONE3 MG ORAL (14:24)
[2017-06-11] MEDS ORDERED: RESTORIL15 MG ORAL (14:25)
--- NOTE | 2017-06-11 14:28 | GI Progress Note ---
Assessment/Plan Problems: (1) Abdominal pain ICD Codes: R10.9 - Unspecified abdominal pain SNOMED: 76031508 (2) Anemia ICD Codes: D64.9 - Anemia, unspecified SNOMED: 457796403 Status: stable Status Narrative Discussed with Dr. Centeno. Assessment/Plan okay for DC per GI standpoint symptomatic treatment at this time zofran prn pain mgmt bowel regime adv diet H2B prophylaxis fu labs refused GI procedures Subjective Gastrointestinal/Abdominal: Reports: no symptoms Objective Last 24 Hour Vital Signs Date Time Temp Pulse Resp B/P (MAP) Pulse Ox O2 Delivery O2 Flow Rate FiO2 06/11/17 12:00 97.9 89 20 131/86 98 06/11/17 08:00 98.0 94 20 130/86 99 06/11/17 04:00 97.5 81 21 130/39 97 06/11/17 00:00 97.9 76 21 127/79 98 06/11/17 00:00 Room Air 06/10/17 20:00 Room Air 06/10/17 20:00 98.1 82 21 133/80 97 06/10/17 15:53 97.7 88 18 139/87 100 Intake and Output 06/10/17 06/11/17 19:00 07:00 Intake Total 920 ml Balance 920 ml Intake Oral 920 ml # Voids 6 3 Height (Feet): 6 Height (Inches): 2.00 Weight (Pounds): 210 General Appearance: WD/WN, no apparent distress, alert Cardiovascular: normal rate Respiratory/Chest: normal breath sounds, no respiratory distress Abdominal Exam: normal bowel sounds, non tender, soft Extremities: normal range of motion, non-tender Marlee Brush N.P. Jun 11, 2017 14:28
[2017-06-11] MEDS ORDERED: 1/2 NS 1000ml IV ONE (15:31)
[2017-06-11] MEDS ORDERED: Tubing IV Secondary IV ONE (15:31)
[2017-06-11 15:53] VITALS: BP 148/81
[2017-06-11] MEDS ORDERED: Haloperidol 5mg/ml Inj IM PRN (16:00)
--- NOTE | 2017-06-11 17:04 | Pulmonology Progress Note ---
Assessment/Plan Problems: (1) Psychosis (2) HTN (hypertension) (3) Hypothyroid (4) Seizure Assessment/Plan no new complains psych evaluaiton appreciated dc planning dvt prophylaixs. d/w nurse Subjective ROS Limited/Unobtainable: No HEENT: Repors: no symptoms Respiratory: Reports: no symptoms Cardiovascular: Reports: no symptoms Allergies: Coded Allergies: No Known Allergies (Unverified , 06/07/17) Objective Last 24 Hour Vital Signs Date Time Temp Pulse Resp B/P (MAP) Pulse Ox O2 Delivery O2 Flow Rate FiO2 06/11/17 15:53 97.1 80 20 148/81 99 Room Air 06/11/17 12:00 97.9 89 20 131/86 98 06/11/17 08:00 98.0 94 20 130/86 99 06/11/17 04:00 97.5 81 21 130/39 97 06/11/17 00:00 97.9 76 21 127/79 98 06/11/17 00:00 Room Air 06/10/17 20:00 Room Air 06/10/17 20:00 98.1 82 21 133/80 97 Intake and Output 06/10/17 06/11/17 19:00 07:00 Intake Total 920 ml Balance 920 ml Intake Oral 920 ml # Voids 6 3 Objective Objective General Appearance: no acute distress HEENT: normocephalic, atraumatic Respiratory/Chest: lungs clear, no respiratory distress, no accessory muscle use Cardiovascular: normal rate, no JVD, CL-femoral intact Abdomen: normal bowel sounds, soft, non tender Extremities: no edema Neurologic/Psychiatric: alert, responsive Musculoskeletal: normal muscle bulk Current Medications Medications (Trade) Dose Ordered Sig/Bert Route PRN Reason Start Time Stop Time Status Last Admin Dose Admin Acetaminophen (Tylenol) 650 mg Q4H PRN ORAL T>100.5 F 06/08/17 08:00 07/08/17 07:44 06/08/17 16:33 Albuterol/ Ipratropium (Albuterol/ Ipratropium) 3 ml Q4H PRN HHN Shortness of Breath 06/08/17 07:45 06/13/17 07:44 Cephalexin (Keflex) 500 mg FOUR TIMES A DAY ORAL 06/09/17 18:00 06/16/17 17:59 06/10/17 21:02 Dextrose (Dextrose 50%) STAT PRN IV Hypoglycemia 06/08/17 07:45 07/08/17 07:44 Divalproex Sodium (Depakote ER) 500 mg EVERY 12 HOURS ORAL 06/08/17 09:00 07/08/17 08:59 06/10/17 21:02 Docusate Sodium (Colace) 100 mg TID PRN ORAL Constipation 06/09/17 17:00 07/09/17 16:59 Haloperidol Lactate (Haldol) 5 mg Q6H PRN IM Agitation 06/11/17 16:00 07/11/17 15:59 Heparin Sodium (Porcine) (Heparin 5000 units/ml) 5,000 units EVERY 12 HOURS SUBQ 06/08/17 09:00 07/08/17 08:59 06/11/17 09:07 Levothyroxine Sodium (Synthroid) 150 mcg ACBREAKFAST ORAL 06/08/17 09:00 07/08/17 08:59 06/09/17 05:58 Morphine Sulfate (Morphine Sulfate) 2 mg Q4H PRN IVP PAIN 4-10 06/08/17 07:45 06/15/17 07:44 Nitroglycerin (Ntg) 0.4 mg Q5MIN X 3 DOSES PRN SL Prn Chest Pain 06/08/17 08:00 07/08/17 07:59 Ondansetron HCl (Zofran) 4 mg Q6H PRN IVP Nausea & Vomiting 06/08/17 07:45 07/08/17 07:44 Polyethylene Glycol (Miralax) 17 gm DAILYPRN PRN ORAL Constipation 06/08/17 07:45 07/08/17 07:44 Risperidone (RisperDAL) 3 mg QHS ORAL 06/10/17 21:00 07/10/17 20:59 06/10/17 21:02 Temazepam (Restoril) 15 mg HSPRN PRN ORAL Insomnia 06/08/17 21:00 06/15/17 20:59 AVILA GREENE Jun 11, 2017 17:04
--- NOTE | 2017-06-12 15:55 | Discharge Summary ---
Discharge Summary Hospital Course Date of Admission Jun 07, 2017 at 21:02 Date of Discharge Jun 11, 2017 at 17:20 Admitting Diagnosis foot ulcers/psychosis HPI Edy Ambrocio is a 57 year old male who was admitted on Jun 07, 2017 at 21:02 for Foot Ulcers/Psychosis Hospital Course [id number] Discharge Discharge Disposition Patient was discharged to SNF/Subacute Facility(03) Discharge Diagnoses: Milla Jasmine NP Jun 12, 2017 15:55
--- NOTE | 2017-06-13 03:00 | Discharge Summary 2 SIG ---
DATE OF ADMISSION: 06/07/2017 DATE OF DISCHARGE: 06/11/2017 CONSULTANTS: 1. Shital Plummer M.D. 2. Tino Centeno M.D. 3. Gasper Oh M.D. 4. Flaco Cueto M.D. 5. Tee Banuelos D.P.M. 6. Ren Cortez M.D. BRIEF HOSPITAL COURSE: The patient is a 57-year-old male from [facility], presented for psychosis and foot ulcers. The patient has a history of psychosis. X-rays of the foot did not show any evidence of osteomyelitis or gas gangrene. The patient was admitted to medical floor. Chest x-ray showed no acute cardiopulmonary disease. He has medical history significant for seizure disorder, hypertension, anemia, depression, and hypothyroidism. Urine toxicology screen was negative. Depakote level was subtherapeutic. He was continued on Depakote. He was seen by Dr. Banuelos. Recommended wound care and to leave lesions open to air. No surgical intervention was needed. He was started on vancomycin for possible cellulitis of the lower extremity. He complained of abdominal pain. He was given symptomatic treatment with Zofran and H2 ange. Diet was advanced and was tolerating diet well. The patient was delusional and disorganized. He was diagnosed with schizophrenia. He was given Risperdal 3 mg at bedtime and was given Haldol as needed. He was provided with wound care. Blood cultures did not isolate any growth and wound culture with Staphylococcus coagulase negative. He was eventually cleared for discharge to continue po Keflex for three more days at assisted. FINAL DIAGNOSES: 1. Left foot cellulitis with skin ulcers on both feet, present on admission. 2. Psychosis. 3. Hypertension. 4. Seizure disorder. 5. Anemia. 6. Hypothyroidism. DISPOSITION: The patient was discharged to [facility]. DISCHARGE MEDICATIONS: Refer to medication list. Osmin Lyons D.O. I have been assigned to dictate discharge summary on this account and I was not involved in the patient's management. Milla Jasmine N.P. DR: SERGEI JOB#: [id number] CC: CHARLES
== END 2017-06-11 17:20 | DRG 383 ==
LOC: EDBD 19:50 → EMR 20:37 → EDBD 21:02 → 4E 21:02 → EDBEDREQ 06-08 02:39
DX: L03.116 Cellulitis of left lower limb (principal); L97.519 Non-pressure chronic ulcer of other part of right foot with unspecified severity; I10 Essential (primary) hypertension; F20.9 Schizophrenia, unspecified; G40.909 Epilepsy, unspecified, not intractable, without status epilepticus; E03.9 Hypothyroidism, unspecified; D64.9 Anemia, unspecified; F29 Unspecified psychosis not due to a substance or known physiological condition; L97.529 Non-pressure chronic ulcer of other part of left foot with unspecified severity; F41.8 Other specified anxiety disorders; R10.9 Unspecified abdominal pain; Z23 Encounter for immunization
CPT/HCPCS: 36415; 71045; 80048; 80053; 80164; 80202; 80307; 80329; 81003; 82550; 82607; 82746; 83605; 83880; 84443; 84484; 85025; 85610; 85651; 85730; 87040; 87070; 87081; 87205; 90471; 90715; 93005; 99285